=== PATIENT | female | born 1935 | race Caucasian/White ===

== ENCOUNTER 2016-10-29 13:03 | Observation (INO) ==
--- NOTE | 2016-10-29 14:25 | Emergency Department Note ---
Disposition Clinical Impression: Pneumonia Disposition: Admitted As Inpatient Condition: Fair Referrals: Reinaldo Andres MD [Primary Care Provider] - Forms: ED Satisfaction Letter Time of Disposition: 17:27 URI/Sore Throat HPI - General Chief Complaint: ED Upper Respiratory Infection Stated Complaint: cough Time Seen by Provider: 10/29/16 13:15 Source: patient, family Mode of arrival: ambulatory Limitations: no limitations Nursing Notes Reviewed: Yes Vital Signs Reviewed: Yes - History of Present Illness HPI Narrative: 81-year-old female increasing short of breath cough and congestion coughing up pink whitish clear phlegm patient states is getting worse patient is having dyspnea with activity dyspneic exertion she denies any blurred vision double vision she denies any actual known fevers states that she is getting short of breath having further worsening of symptoms with activity Pt Subjective Complaint: cough, nasal congestion Onset (ago): day(s) Duration: gradually worsening Severity: mild Severity scale (1-10): 3 Improves with: nothing Worsens with: exertion If sputum, description: watery, other (pink tinged) Associated symptoms: Reports: diaphoresis, nasal congestion, cough, shortness of breath. Denies: fever, chills, voice changes, myalgias, headache, rhinorrhea , sore throat, stiff neck, chest pain, abdominal pain, nausea, vomiting, diarrhea, dysuria, rash, epistaxis, ear pain Treatments prior to arrival: none - Related Data Home Medications Medication Instructions Recorded Confirmed ALPRAZolam [Xanax 0.5 MG Tablet] 0.5 mg PO TID 08/12/15 10/29/16 Alendronate Sodium [Fosamax] 70 mg PO QWEEK 08/12/15 08/12/15 Aspirin [Adult Low Dose Aspirin EC] 81 mg PO DAILY 08/12/15 10/29/16 Carisoprodol [Soma] 350 mg PO BID 08/12/15 10/29/16 Ergocalciferol (VITAMIN D2) 50,000 unit PO QWEEK 08/12/15 10/29/16 [Drisdol (50,000 Unit)] Levothyroxine [Synthroid] 75 mcg PO DAILY 08/12/15 10/29/16 Metformin HCl [Riomet] 500 mg PO BID 08/12/15 10/29/16 Metoprolol [Lopressor] 50 mg DAILY 08/12/15 10/29/16 Morphine Sulfate ER (24 HR) 90 mg PO 08/12/15 [Morphine Sulfate ER] PredniSONE [Latoya] 10 mg PO DAILY 08/12/15 10/29/16 Simvastatin [Zocor] 40 mg PO HS 08/12/15 10/29/16 TraZODone 75 mg PO DAILY 08/12/15 10/29/16 Previous Rx's Medication Instructions Recorded GuaiFENesin ER [Mucinex] 1,200 mg PO BID #28 tbbp.12hr 08/12/15 Allergies Allergy/AdvReac Type Severity Reaction Status Date / Time ibuprofen [From Advil] Allergy Swelling Verified 10/29/16 13:06 of Lip/Tongue/Throat amitriptyline [From Elavil] AdvReac Hallucinati Verified 10/29/16 13:06 ng fluoxetine [From Prozac] AdvReac Difficulty Verified 12/09/15 12:16 Breathing All systems ED: reviewed and negative except as stated. Constitutional: Denies: fever, chills Eyes: Denies: eye pain ENT ED: Denies: ear pain Cardiovascular: Denies: chest pain, palpitations Respiratory: Reports: cough, sputum production Gastrointestinal: Denies: abdominal pain, melena Genitourinary: Denies: urgency, dysuria Musculoskeletal: Denies: back pain Integumentary: Denies: rash, abrasion Neurological: Denies: headache Psychiatric: Denies: anxiety Endocrine: Denies: fatigue Hematological/Lymphatic: Denies: easy bleeding Allergic/Immunologic: Denies: facial swelling URI PMH - Past Medical History Medical history: Reports: arthritis, asthma, diabetes, fibromyalgia, GERD, hyperlipidemia, hypertension, thyroid disease Surgical history: Reports: orthopedic, other (Cervical fusion, Chawla shahrzad and removal) Surgical history: Reports: (2), KATHY/BSO Psychiatric history: Reports: anxiety, depression - Social History Smoking Status: Never smoker Alcohol use: Reports: none Drug use: Reports: none Physical Exam - General Limitations: no limitations General appearance: alert, in no apparent distress - Head Head exam: atraumatic, normocephalic, normal inspection - Eye Eye exam: Present: normal appearance, PERRL, EOMI - ENT ENT exam: normal exam, normal oropharynx, mucous membranes moist, normal external ear exam - Neck Neck exam: Present: normal inspection, full ROM, trachea midline - Chest Chest inspection: Present: normal inspection, symmetric chest wall rise - Respiratory Respiratory exam: Present: normal lung sounds bilaterally, other (rhonci) - Cardiovascular Cardiovascular exam: Present: regular rate, normal rhythm, normal heart sounds - Abdominal Exam Abdominal exam: Present: soft, Non-Tender, normal bowel sounds. Absent: mass, hernia - Extremities Exam Extremities exam: Present: normal inspection, full ROM, normal capillary refill. Absent: tenderness, joint swelling - Expanded Lower Extremity Exam Lower leg exam: Present: Homans' sign Neurovascular/Tendon exam: Present: normal capillary refill, normal fine/light touch - Back Exam Back exam: Present: normal inspection, full ROM. Absent: tenderness, CVA tenderness (R), muscle spasm - Neurological Exam Neurological exam: Present: alert, oriented X3, CN II-XII intact, normal gait - Psychiatric Psychiatric exam: Present: normal affect, normal mood - Skin Skin exam: Present: warm, dry, intact, normal color Course Course Narrative: Patient was seen and examined the patient resting comfortable he had no pain or discomfort then was noted to have an elevated d-dimer we did a PE study on her upon completion showing no evidence of pulmonary emboli but showing pneumonia we placed on antibodies patient was admitted services Dr. Becerril transfer stable Vital Signs Temperature 98 F 10/29/16 13:12 Pulse Rate 78 10/29/16 13:12 Respiratory Rate 18 10/29/16 13:12 Blood Pressure 151/77 10/29/16 13:12 O2 Sat by Pulse Oximetry 94 10/29/16 13:12 Temperature 98 F 10/29/16 14:03 Pulse Rate 61 10/29/16 17:17 Respiratory Rate 16 10/29/16 17:17 Blood Pressure 145/98 10/29/16 17:17 O2 Sat by Pulse Oximetry 92 10/29/16 17:17 Oxygen Delivery Oxygen Delivery Room Air Upper Respiratory Infection - MDM Narrative Medical decision making narrative: By her description it could be consistent with pulmonary emboli congestive heart failure - Differential Diagnosis Differential Diagnosis: Likely: upper respiratory infection, bronchitis, pneumonia - Medical Records Medical records reviewed: Yes I reviewed the patient's medical records. - Lab Data Lab results reviewed: Yes I reviewed the patient's lab results. Result diagrams: 10/29/16 15:02 10/29/16 15:02 Lab Results 10/29/16 10/29/16 10/29/16 Range/Units 15:02 15:02 15:02 WBC 6.1 (4.3-11.1) K/mcL RBC 4.78 (3.82-4.97) M/mcL Hgb 13.6 (11.5-15.4) g/dL Hct 42.6 (35.3-44.9) % MCV 89.1 (83.0-100.0) fL MCH 28.5 (28.0-33.3) pg MCHC 31.9 (31.6-35.5) g/dL RDW 16.1 H (11.5-14.5) % Plt Count 170 (140-400) K/mcL MPV 9.8 (9.4-12.4) fL Immature Gran % 0.5 (0-4) % Seg Neutrophils % 57.2 % Lymphocytes % 28.4 % Monocytes % 6.7 % Eosinophils % 6.7 % Basophils % 0.5 % Neutrophils # 3.5 (1.6-8.9) K/mcL Lymphocytes # 1.7 (0.6-4.6) K/mcL Monocytes # 0.4 (0.0-1.3) K/mcL Eosinophils # 0.4 (0.0-0.6) K/mcL Basophils # 0.0 (0.0-0.2) K/mcL PT 11.7 (9.4-12.1) Seconds INR 1.1 APTT 30.8 (26.0-36.0) Seconds D-Dimer 1074 H (0-500) ng/mLFEU Sodium (136-145) mEq/L Potassium (3.5-4.5) mEq/L Chloride (98-109) mEq/L Carbon Dioxide (19-29) mEq/L BUN (7-20) mg/dL Creatinine (0.57-1.11) mg/dL Est GFR ( Amer) (> 60) Est GFR (Non-Af Amer) (> 60) BUN/Creatinine Ratio (6-26) Glucose (70-99) mg/dL Calculated Osmolality (280-300) Calcium (8.6-10.8) mg/dL Troponin I (0-0.03) ng/mL B-Natriuretic Peptide (0-100) pg/mL TSH (0.350-4.840) mcIU/mL Urine Color (Yellow) Urine Clarity (Clear) Urine pH (5.0-8.0) pH Units Ur Specific [place] (1.010-1.025) Urine Protein (Neg-Trace) mg/dL Urine Glucose (UA) (Normal) mg/dL Urine Ketones (Negative) mg/dL Urine Blood (Negative) Urine Nitrite (Negative) Urine Bilirubin (Negative) Urine Urobilinogen (Normal) mg/dL Ur Leukocyte Esterase (Negative) Urine Microscopic RBC (0-3) per hpf Urine Microscopic WBC (0-3) per hpf Ur Squamous Epith Cells (None-Few) per lpf Urine Bacteria (None-Few) per hpf Ur Culture Indicated? (NO) 10/29/16 10/29/16 10/29/16 Range/Units 15:02 15:02 15:02 WBC (4.3-11.1) K/mcL RBC (3.82-4.97) M/mcL Hgb (11.5-15.4) g/dL Hct (35.3-44.9) % MCV (83.0-100.0) fL MCH (28.0-33.3) pg MCHC (31.6-35.5) g/dL RDW (11.5-14.5) % Plt Count (140-400) K/mcL MPV (9.4-12.4) fL Immature Gran % (0-4) % Seg Neutrophils % % Lymphocytes % % Monocytes % % Eosinophils % % Basophils % % Neutrophils # (1.6-8.9) K/mcL Lymphocytes # (0.6-4.6) K/mcL Monocytes # (0.0-1.3) K/mcL Eosinophils # (0.0-0.6) K/mcL Basophils # (0.0-0.2) K/mcL PT (9.4-12.1) Seconds INR APTT (26.0-36.0) Seconds D-Dimer (0-500) ng/mLFEU Sodium 141 (136-145) mEq/L Potassium 4.2 (3.5-4.5) mEq/L Chloride 105 (98-109) mEq/L Carbon Dioxide 26 (19-29) mEq/L BUN 17 (7-20) mg/dL Creatinine 0.76 (0.57-1.11) mg/dL Est GFR ( Amer) > 60 (> 60) Est GFR (Non-Af Amer) > 60 (> 60) BUN/Creatinine Ratio 22 (6-26) Glucose 94 (70-99) mg/dL Calculated Osmolality 293 (280-300) Calcium 9.2 (8.6-10.8) mg/dL Troponin I 0.00 (0-0.03) ng/mL B-Natriuretic Peptide 78 (0-100) pg/mL TSH 3.952 (0.350-4.840) mcIU/mL Urine Color (Yellow) Urine Clarity (Clear) Urine pH (5.0-8.0) pH Units Ur Specific [place] (1.010-1.025) Urine Protein (Neg-Trace) mg/dL Urine Glucose (UA) (Normal) mg/dL Urine Ketones (Negative) mg/dL Urine Blood (Negative) Urine Nitrite (Negative) Urine Bilirubin (Negative) Urine Urobilinogen (Normal) mg/dL Ur Leukocyte Esterase (Negative) Urine Microscopic RBC (0-3) per hpf Urine Microscopic WBC (0-3) per hpf Ur Squamous Epith Cells (None-Few) per lpf Urine Bacteria (None-Few) per hpf Ur Culture Indicated? (NO) 10/29/16 Range/Units 15:15 WBC (4.3-11.1) K/mcL RBC (3.82-4.97) M/mcL Hgb (11.5-15.4) g/dL Hct (35.3-44.9) % MCV (83.0-100.0) fL MCH (28.0-33.3) pg MCHC (31.6-35.5) g/dL RDW (11.5-14.5) % Plt Count (140-400) K/mcL MPV (9.4-12.4) fL Immature Gran % (0-4) % Seg Neutrophils % % Lymphocytes % % Monocytes % % Eosinophils % % Basophils % % Neutrophils # (1.6-8.9) K/mcL Lymphocytes # (0.6-4.6) K/mcL Monocytes # (0.0-1.3) K/mcL Eosinophils # (0.0-0.6) K/mcL Basophils # (0.0-0.2) K/mcL PT (9.4-12.1) Seconds INR APTT (26.0-36.0) Seconds D-Dimer (0-500) ng/mLFEU Sodium (136-145) mEq/L Potassium (3.5-4.5) mEq/L Chloride (98-109) mEq/L Carbon Dioxide (19-29) mEq/L BUN (7-20) mg/dL Creatinine (0.57-1.11) mg/dL Est GFR ( Amer) (> 60) Est GFR (Non-Af Amer) (> 60) BUN/Creatinine Ratio (6-26) Glucose (70-99) mg/dL Calculated Osmolality (280-300) Calcium (8.6-10.8) mg/dL Troponin I (0-0.03) ng/mL B-Natriuretic Peptide (0-100) pg/mL TSH (0.350-4.840) mcIU/mL Urine Color Yellow (Yellow) Urine Clarity Clear (Clear) Urine pH 5.0 (5.0-8.0) pH Units Ur Specific [place] 1.015 (1.010-1.025) Urine Protein Negative (Neg-Trace) mg/dL Urine Glucose (UA) Normal (Normal) mg/dL Urine Ketones Negative (Negative) mg/dL Urine Blood Negative (Negative) Urine Nitrite Negative (Negative) Urine Bilirubin Negative (Negative) Urine Urobilinogen Normal (Normal) mg/dL Ur Leukocyte Esterase Small H (Negative) Urine Microscopic RBC 0-3 (0-3) per hpf Urine Microscopic WBC 3-5 H (0-3) per hpf Ur Squamous Epith Cells Few (None-Few) per lpf Urine Bacteria Few (None-Few) per hpf Ur Culture Indicated? YES A (NO) - Radiology Data Radiology results reviewed: Yes I reviewed the patient's radiology results. ITS Impressions Chest X-Ray 10/29/16 14:22 IMPRESSION: No significant findings in the chest. D/ / Bonifacio Burciaga MD / Bonifacio Burciaga MD Interpreting Provider: Bonifacio Burciaga MD Chest CTA 10/29/16 16:00 IMPRESSION: 1. No evidence of pulmonary embolism or aortic dissection. 2. Bronchial wall thickening and mucous plugging within the lower lobes bilaterally, greater on the right, with mild patchy ground-glass opacity within the lower lungs bilaterally. Findings are suggestive of bronchopneumonia. However, this must be followed up to ensure that there is no endobronchial lesions. 3. Moderate size hiatal hernia. D/ / Reinaldo Talavera MD / Reinaldo Talavera MD Interpreting Provider: Reinaldo Talavera MD - EKG Data EKG attestation: Yes I reviewed and interpreted this EKG. EKG results narrative: Sinus rhythm PVC rate is 66 HI 166 QRS 84 QT 399 back S -22 Critical Care Time Critical Care Time: No
[2016-10-29 15:11] LABS: Basophils % 0.5 %; Eosinophils # 0.4 K/mcL (0.0-0.6); Eosinophils % 6.7 %; Hematocrit 42.6 % (35.3-44.9); Hemoglobin 13.6 g/dL (11.5-15.4); Immature Granulocytes % 0.5 % (0-4); Lymphocytes # 1.7 K/mcL (0.6-4.6); Lymphocytes % 28.4 %; Mean Corpuscular HGB Conc 31.9 g/dL (31.6-35.5); Mean Corpuscular Hemoglobin 28.5 pg (28.0-33.3); Mean Corpuscular Volume 89.1 fL (83.0-100.0); Mean Platelet Volume 9.8 fL (9.4-12.4); Monocytes # 0.4 K/mcL (0.0-1.3); Monocytes % 6.7 %; Neutrophils # 3.5 K/mcL (1.6-8.9); Platelet Count 170 K/mcL (140-400); Red Blood Count 4.78 M/mcL (3.82-4.97); Red Cell Distribution Width 16.1 % (11.5-14.5); Segmented Neutrophils % 57.2 %
[2016-10-29 15:17] LABS: INR 1.1; Prothrombin Time 11.7 Seconds (9.4-12.1)
[2016-10-29 15:27] LABS: BUN/Creatinine Ratio 22 (6-26); Blood Urea Nitrogen 17 mg/dL (7-20); Calcium 9.2 mg/dL (8.6-10.8); Carbon Dioxide 26 mEq/L (19-29); Chloride 105 mEq/L (98-109); Glucose 94 mg/dL (70-99); Osmolality,Calculated 293 (280-300); Potassium 4.2 mEq/L (3.5-4.5); Sodium 141 mEq/L (136-145); eGFR For African Americans > 60 (> 60); eGFR For Non-African Americans > 60 (> 60)
[2016-10-29 15:28] LABS: Bilirubin,Urine Negative (Negative); Blood,Urine Negative (Negative); Clarity,Urine Clear (Clear); Color,Urine Yellow (Yellow); Glucose,Urine (UA) Normal (Normal); Ketones,Urine Negative (Negative); Leukocyte Esterase,Urine Small (Negative); Nitrite,Urine Negative (Negative); Protein,Urine Negative (Neg-Trace); Specific Gravity,Urine 1.015 (1.010-1.025); Urobilinogen,Urine Normal (Normal)
[2016-10-29 15:39] LABS: Bacteria,Urine Few per hpf (None-Few); RBC,Urine 0-3 per hpf (0-3); Squamous Epithelial Cell,Urine Few per lpf (None-Few)
[2016-10-29 15:49] LABS: Thyroid Stimulating Hormone 3.952 mcIU/mL (0.350-4.840)
[2016-10-29] MEDS ORDERED: Azithromycin 500 MG in D5% in Water 250 ML IVPB ONE ×2 (17:16→19:25)
[2016-10-29] MEDS ORDERED: Dextrose Gel 15 GM PO PRN ×4 (17:23→19:25)
[2016-10-29] MEDS ORDERED: D5% in Water 1,000 ML IVC PRN ×2 (17:23→19:25)
[2016-10-29] MEDS ORDERED: *HR* Dextrose 50 % in Water (Syg) 50 ML SYRINGE IVP PRN ×2 (17:23→19:25)
[2016-10-29] MEDS ORDERED: Naloxone 0.4 MG/ML INJ IVP PRN (19:25)
[2016-10-29] MEDS ORDERED: (Alendronate Sodium [Fosamax] 70 MG) PO SCH (19:25)
[2016-10-29] MEDS ORDERED: traZODone 50 MG TABLET PO SCH (21:00)
[2016-10-29] MEDS: 0.9 % Sodium Chloride 1,000 ML IVC SCH (22:48)
[2016-10-29] MEDS: ALPRAZolam 0.5 MG TABLET PO SCH (22:49)
[2016-10-29] MEDS: Carisoprodol 350 MG TABLET PO SCH (22:50)
[2016-10-29] MEDS: *HR* Metformin 500 MG TABLET PO SCH (22:52)
[2016-10-30 05:28] LABS: Basophils % 0.5 %; Eosinophils # 0.4 K/mcL (0.0-0.6); Eosinophils % 7.5 %; Hemoglobin 12.7 g/dL (11.5-15.4); Immature Granulocytes % 0.3 % (0-4); Lymphocytes # 1.5 K/mcL (0.6-4.6); Lymphocytes % 26.8 %; Mean Corpuscular HGB Conc 31.8 g/dL (31.6-35.5); Mean Corpuscular Volume 88.3 fL (83.0-100.0); Mean Platelet Volume 9.5 fL (9.4-12.4); Monocytes # 0.4 K/mcL (0.0-1.3); Monocytes % 6.8 %; Neutrophils # 3.3 K/mcL (1.6-8.9); Platelet Count 152 K/mcL (140-400); Red Blood Count 4.53 M/mcL (3.82-4.97); Red Cell Distribution Width 15.9 % (11.5-14.5); Segmented Neutrophils % 58.1 %
[2016-10-30 05:35] LABS: INR 1.1; Prothrombin Time 12.2 Seconds (9.4-12.1)
[2016-10-30 06:32] LABS: BUN/Creatinine Ratio 18 (6-26); Blood Urea Nitrogen 13 mg/dL (7-20); Calcium 8.7 mg/dL (8.6-10.8); Carbon Dioxide 26 mEq/L (19-29); Chloride 105 mEq/L (98-109); Glucose 94 mg/dL (70-99); Osmolality,Calculated 288 (280-300); Potassium 4.1 mEq/L (3.5-4.5); Sodium 139 mEq/L (136-145); eGFR For African Americans > 60 (> 60); eGFR For Non-African Americans > 60 (> 60)
[2016-10-30] MEDS ORDERED: Insulin LISPRO 300 UNITS/3 ML VIAL SQ SCH (07:30)
[2016-10-30] MEDS: Insulin LISPRO 300 UNITS/3 ML VIAL SQ SCH ×2 (08:48→11:45)
[2016-10-30] MEDS: *HR* Metformin 500 MG TABLET PO SCH (08:49)
[2016-10-30] MEDS: ALPRAZolam 0.5 MG TABLET PO SCH (08:50)
[2016-10-30] MEDS: Carisoprodol 350 MG TABLET PO SCH (08:50)
[2016-10-30] MEDS: 0.9 % Sodium Chloride 1,000 ML IVC SCH ×2 (08:51→13:56)
[2016-10-30] MEDS ORDERED: Aspirin Enteric Coated 81 MG Tablet PO SCH (09:00)
[2016-10-30] MEDS ORDERED: Cholecalciferol (D-3) 1,000 UNIT TABLET PO SCH (09:00)
[2016-10-30] MEDS ORDERED: predniSONE 10 MG TABLET PO SCH (09:00)
[2016-10-30 11:10] VITALS: BP 142/87
--- NOTE | 2016-10-30 11:31 | Electrocardiograph Report ---
[place] [id number] Test Date: 2016-10-29 Pat Name: Alix Diana Department: [id number] Room: [facility] Gender: F Menu Planner: [id number] : [id number] Requested By: Milena Stanley Order Number: [id number] Reading MD: Rafaela Villegas Measurements Intervals [place] Rate: 66 P: 81 [place]: 166 QRS: -22 QRSD: 84 T: 12 QT: 399 QTc: 412 Interpretive Statements SINUS RHYTHM WITH OCCASIONAL VENTRICULAR PREMATURE COMPLEXES BORDERLINE LEFT AXIS DEVIATION Electronically Signed On 10-30-2016 11:30:03 EDT by Rafaela Villegas
--- NOTE | 2016-10-30 14:35 | Internal Med History&Physical ---
Date of Encounter: 10/30/16 Time of Encounter: 14:00 Assessment and Plan (1) Dyspnea Current visit: Yes Status: Acute Suspect resolving pneumonia. CT of chest reviewed which showed bibasilar infiltrates. WBC and differential are normal. She was given Rocephin and Zithromax in the emergency room. Qualifiers: Dyspnea type: dyspnea on exertion Qualified Code(s): R06.09 - Other forms of dyspnea (2) Pneumonia Current visit: Yes Status: Acute As above Qualifiers: Pneumonia type: due to unspecified organism Laterality: bilateral Lung location: lower lobe of lung Qualified Code(s): J18.9 - Pneumonia, unspecified organism Internal Medicine - H&P: HPI Chief complaint: Cough and dyspnea Admitted From: Home Plans for Post Hospital Care: Home History of present illness: Ms. Diana is a 81 year old female who came to emergency room stating she had 3- 4 week history of cough with dyspnea. She states the cough was productive of whitish phlegm with occasional shades of pink. She denies carlos alberto hemoptysis or green or yellow mucus. When she did not feel she was improving she decided to come to emergency room. She was evaluated and felt to have possible pneumonia. She was admitted to [facility] floor for ongoing care needs. She states her dyspnea has significantly improved since admission. She reports she has had pneumonia previously several occasions. Her respiratory history issignificant for being a lifelong nonsmoker but she has a diagnosis of asthma. She uses Ventolin MDI on a when necessary basis at home. She does not use home oxygen. Past Med Surg Social Fam HX - Past Medical History Medical history: arthritis, asthma, diabetes, fibromyalgia, GERD, hyperlipidemia , hypertension, thyroid disease Psychiatric history: anxiety, depression - Past Surgical History Surgical History: , KATHY/BSO - Social History Smoking Status: Never smoker Smokeless Tobacco Status: No Alcohol use: none Drug use: none - Family History Mother Living Status: Age at : 93 Hx Family Cancer: Yes (colon) Father Age: 69 Living Status: Age at : 69 Hx Family Cardiac Disorders: Yes Internal Medicine - H&P: Meds ALPRAZolam [Xanax 0.5 MG Tablet] 0.5 mg PO TID 08/12/15 [History] Alendronate Sodium [Fosamax] 70 mg PO QWEEK 08/12/15 [History] Aspirin [Adult Low Dose Aspirin EC] 81 mg PO DAILY 08/12/15 [History] Carisoprodol [Soma] 350 mg PO BID 08/12/15 [History] Ergocalciferol (VITAMIN D2) [Drisdol (50,000 Unit)] 50,000 unit PO QWEEK [History] GuaiFENesin ER [Mucinex] 1,200 mg PO BID #28 tbbp.12hr 08/12/15 [Rx] Levothyroxine [Synthroid] 75 mcg PO DAILY 08/12/15 [History] Metformin HCl [Riomet] 500 mg PO BID 08/12/15 [History] Metoprolol [Lopressor] 50 mg DAILY 08/12/15 [History] Morphine Sulfate ER (24 HR) [Morphine Sulfate ER] 90 mg PO 08/12/15 [History] PredniSONE [Latoya] 10 mg PO DAILY 08/12/15 [History] Simvastatin [Zocor] 40 mg PO HS 08/12/15 [History] TraZODone 75 mg PO DAILY 08/12/15 [History] Allergies ibuprofen [From Advil] Allergy (Verified 10/29/16 13:06) Swelling of Lip/Tongue/Throat pt states she is not allergic to ibuprofen amitriptyline [From Elavil] Adverse Reaction (Verified 10/29/16 13:06) Hallucinating fluoxetine [From Prozac] Adverse Reaction (Verified 12/09/15 12:16) Difficulty Breathing Was not affective All Systems PM: A 10-system review of systems was performed and is negative for pertinent findings except as documented above in the HPI. Review of systems: Gen.: She states her weight has been stable past few months Cardiovascular: She has history of hypertension but denies OH heart failure angina DVT or pulmonary embolus Respiratory: As per history of present illness GI: She denies disorders of her liver gallbladder or exocrine pancreas : She denies hematuria dysuria or kidney stones Neurologic: She denies large distribution strokes or seizures Endocrine: She was diagnosed with DM2 5-10 years ago. She has hypothyroidism and hyperlipidemia Hematology/oncology: She has history of anemia which has resolved. She denies internal malignancies Psychiatric: She has anxiety and depression but denies other mental health diagnoses [place] skeletal: She has DJD, osteoporosis, and polymyalgia rheumatica. - Constitutional Vitals: Temp Pulse Resp BP Pulse Ox 98.7 F 80 16 142/87 98 10/30/16 11:08 10/30/16 11:08 10/30/16 11:08 10/30/16 11:08 10/30/16 11:08 Exam: Gen.: She is a well-developed well-nourished female who appears in no acute distress HEENT: Head is atraumatic and normocephalic. Eyes: EOMI. There is no scleral icterus. Mouth: Mucosa is moist. Neck: Supple and nontender. There is no thyromegaly or adenopathy noted. Heart: Regular without murmurs gallops or ectopics. Lungs: No wheezes or crackles are heard. Abdomen: Soft and nontender. No masses or guarding noted. Extremities: There is no cyanosis edema or clubbing noted. Dorsalis pedis and posterior tibial pulses are trace palpable bilaterally. She has mild DJD changes of her hands. Neurologic: Mental status: She is talkative and a good historian. Cranial nerves: Smile is symmetric. Forehead wrinkles bilaterally. Tongue protrudes midline. EOMI. Motor: There is no pronator drift. Cerebellar: Finger to nose is intact bilaterally. Skin: Warm and dry Internal Med - H&P Results - Labs CBC & Chem 7: 10/30/16 05:09 10/30/16 05:09 Labs: Short CBC 10/30/16 Range/Units 05:09 WBC 5.7 (4.3-11.1) K/mcL Hgb 12.7 (11.5-15.4) g/dL Hct 40.0 (35.3-44.9) % Plt Count 152 (140-400) K/mcL Neutrophils # 3.3 (1.6-8.9) K/mcL BMP 10/30/16 05:09 Sodium 139 Potassium 4.1 Chloride 105 Carbon Dioxide 26 BUN 13 Creatinine 0.71 Glucose 94 Calcium 8.7
--- NOTE | 2016-10-30 14:45 | Discharge Summary ---
Date of Encounter: 10/30/16 Time of Encounter: 14:00 - Discharge Diagnosis (1) Pneumonia Priority: Primary Status: Acute Qualifiers: Pneumonia type: due to unspecified organism Laterality: bilateral Lung location: lower lobe of lung Qualified Code(s): J18.9 - Pneumonia, unspecified organism (2) Dyspnea Priority: Secondary Status: Acute Qualifiers: Dyspnea type: dyspnea on exertion Qualified Code(s): R06.09 - Other forms of dyspnea - Discharge Medications Prescriptions: Cefuroxime PO [Ceftin] 500 mg PO Q12HR #6 tablet Azithromycin [Zithromax] 250 mg PO Q24H #3 tablet Lactobacillus [Culturelle] 1 each PO BID #6 cap.sprink Home Medications: ALPRAZolam [Xanax 0.5 MG Tablet] 0.5 mg PO TID 08/12/15 [History] Alendronate Sodium [Fosamax] 70 mg PO QWEEK 08/12/15 [History] Aspirin [Adult Low Dose Aspirin EC] 81 mg PO DAILY 08/12/15 [History] Carisoprodol [Soma] 350 mg PO BID 08/12/15 [History] Ergocalciferol (VITAMIN D2) [Drisdol (50,000 Unit)] 50,000 unit PO QWEEK [History] GuaiFENesin ER [Mucinex] 1,200 mg PO BID #28 tbbp.12hr 08/12/15 [Rx] Levothyroxine [Synthroid] 75 mcg PO DAILY 08/12/15 [History] Metformin HCl [Riomet] 500 mg PO BID 08/12/15 [History] Metoprolol [Lopressor] 50 mg DAILY 08/12/15 [History] Morphine Sulfate ER (24 HR) [Morphine Sulfate ER Caps] 90 mg PO 08/12/15 [ History] PredniSONE [Latoya] 10 mg PO DAILY 08/12/15 [History] Simvastatin [Zocor] 40 mg PO HS 08/12/15 [History] TraZODone 75 mg PO DAILY 08/12/15 [History] Azithromycin [Zithromax] 250 mg PO Q24H #3 tablet 10/30/16 [Rx] Cefuroxime PO [Ceftin] 500 mg PO Q12HR #6 tablet 10/30/16 [Rx] Lactobacillus [Culturelle] 1 each PO BID #6 cap.sprink 10/30/16 [Rx] Allergies/Adverse Reactions: Allergies ibuprofen [From Advil] Allergy (Verified 10/29/16 13:06) Swelling of Lip/Tongue/Throat pt states she is not allergic to ibuprofen amitriptyline [From Elavil] Adverse Reaction (Verified 10/29/16 13:06) Hallucinating fluoxetine [From Prozac] Adverse Reaction (Verified 12/09/15 12:16) Difficulty Breathing Was not affective Date of admission: 10/29/16 17:32 Primary care physician: Reinaldo Andres MD Consults: 10/29/16 23:24 Consult to Underwriting Support Specialist [CONS] Routine Reason for SW Consult: Financial concerns on how to pay hospital bill. - Patient Status Disposition: Home, Self-Care Condition: Fair Functional capacity at discharge: uses cane/walker Overall status at discharge: patient is progressing back to baseline - Discharge Instructions Follow Up With: Reinaldo Andres MD [Primary Care Provider] - 1 week - Diet and Activity Activity: resume usual activities as tolerated Diet: advance to your usual diet Hospital course: Ms. Diana is a 81 year old female who came to emergency room stating she had 3- 4 week history of cough with dyspnea. She states the cough was productive of whitish phlegm with occasional shades of pink. She denies carlos alberto hemoptysis or green or yellow mucus. When she did not feel she was improving she decided to come to emergency room. She was evaluated and felt to have possible pneumonia. She was admitted to [facility] floor for ongoing care needs. Initial orders were written by the emergency room physician. I saw her on October 30 and performed a history physical and discharge. When I saw her I felt she likely had subacute pneumonia with ongoing dyspnea. She remained afebrile during her hospital stay. Follow-up CBC on October 30 showed normal WBC and differential. She will continue with oral antibiotics and probiotics for 3 additional days after discharge. She will follow with her PCP within one week. Room air oximetry will be checked on a 6 minute walk prior to discharge. - Time Spent with Patient Total time spent providing and/or coordinating discharge services: - Constitutional Vitals: Temp Pulse Resp BP Pulse Ox 98.7 F 80 16 142/87 98 10/30/16 11:08 10/30/16 11:08 10/30/16 11:08 10/30/16 11:08 10/30/16 11:08
[2016-10-30] MEDS ORDERED: Azithromycin 500 MG in D5% in Water 250 ML IVPB SCH (20:00)
== END 2016-10-30 16:00 | disposition home or self-care (01) ==
LOC: INPPIK 13:03 → EMEROOPIK 13:03 → INPPIK 20:04
PROVIDERS: ADMIT Internal Medicine; ATTEND Internal Medicine

== ENCOUNTER 2017-04-18 14:30 | Observation (INO) ==
--- NOTE | 2017-04-18 15:06 | Emergency Department Note ---
Disposition Clinical Impression: Community acquired pneumonia, Dyspnea Disposition: Admitted As Inpatient Condition: Fair Referrals: Reinaldo Andres MD [Primary Care Provider] - Time of Disposition: 15:22 SOB HPI - General Chief Complaint: ED Shortness of Breath/Dyspnea Stated Complaint: PRODUCTIVE COUGH Time Seen by Provider: 04/18/17 14:35 Source: patient Mode of arrival: ambulatory Limitations: no limitations Nursing Notes Reviewed: Yes Vital Signs Reviewed: Yes - History of Present Illness 3 day history of fever chills cough congestion sputum production bright green in color aches all over denies any blurred vision double vision is dyspneic with activity denies diarrhea melena hematochezia or hematemesis any abdominal pain or discomfort and cramping or diarrhea patient denies knowledge of flu exposure Pt Subjective Complaint: shortness of breath, cough Onset (ago): day(s) (3) Severity: moderate Consistency/Duration: intermittent, gradually worsening Improves with: nothing Worsens with: exertion, movement, coughing Known history of: COPD Associated symptoms: Reports: pain with inspiration, fever, cough, wheezing, sputum production. Denies: orthopnea, lower extremity pain, polyuria, polydipsia, parasthesias, palpitations, diaphoresis, nausea/vomiting, syncope, abdominal pain, rash, sense of impending doom Treatment prior to arrival: none Cough present: Yes Cough Description: Involuntary, Productive, Weak, Rattling Cough Frequency: Intermittent Sputum production: Yes Sputum Amount: Moderate Sputum Color: Green - Related Data Home Medications Medication Instructions Recorded Confirmed ALPRAZolam [Xanax 0.5 MG Tablet] 0.5 mg PO TID 08/12/15 04/18/17 Alendronate Sodium [Fosamax] 70 mg PO QWEEK 08/12/15 04/18/17 Aspirin [Adult Low Dose Aspirin EC] 81 mg PO DAILY 08/12/15 04/18/17 Carisoprodol [Soma] 350 mg PO BID 08/12/15 04/18/17 Ergocalciferol (VITAMIN D2) 50,000 unit PO QWEEK 08/12/15 04/18/17 [Drisdol (50,000 Unit)] Levothyroxine [Synthroid] 75 mcg PO DAILY 08/12/15 04/18/17 Metformin HCl [Riomet] 500 mg PO BID 08/12/15 04/18/17 Metoprolol [Lopressor] 50 mg DAILY 08/12/15 04/18/17 Morphine Sulfate ER (24 HR) 90 mg PO BID 08/12/15 04/18/17 [Morphine Sulfate ER Caps] PredniSONE [Latoya] 10 mg PO DAILY 08/12/15 04/18/17 Simvastatin [Zocor] 40 mg PO HS 08/12/15 04/18/17 TraZODone 100 mg PO DAILY 08/12/15 04/18/17 Albuterol Sulfate [Albuterol 2 puff IH Q4H PRN 04/18/17 04/18/17 Inhaler] Budesonide/Formoterol 160/4.5 1 puff IH BIDR 04/18/17 04/18/17 [Symbicort 160/4.5] Ferrous Gluconate 324 mg PO DAILY 04/18/17 04/18/17 Folic Acid 1 mg PO DAILY 04/18/17 04/18/17 Ipratropium/Albuterol Neb [Duoneb] 3 ml IH Q6HR 04/18/17 04/18/17 Losartan Potassium [Cozaar] 100 mg PO DAILY 04/18/17 04/18/17 Morphine Sulfate [Morphine Sulfate 100 mg PO BID 04/18/17 04/18/17 ER] Omeprazole 40 mg PO DAILY 04/18/17 04/18/17 Previous Rx's Medication Instructions Recorded Lactobacillus [Culturelle] 1 each PO BID #6 cap.sprink 10/30/16 Allergies Allergy/AdvReac Type Severity Reaction Status Date / Time ibuprofen [From Advil] Allergy Swelling Verified 10/29/16 13:06 of Lip/Tongue/Throat amitriptyline [From Elavil] AdvReac Hallucinati Verified 10/29/16 13:06 ng fluoxetine [From Prozac] AdvReac Difficulty Verified 12/09/15 12:16 Breathing All systems ED: reviewed and negative except as stated. Review of Systems: As Per HPI Constitutional: Reports: fever, chills, weakness Eyes: Denies: eye pain, eye discharge ENT ED: Reports: throat pain, congestion Cardiovascular: Denies: chest pain, palpitations Respiratory: Reports: cough, dyspnea, wheezes, sputum production Gastrointestinal: Denies: abdominal pain, nausea, vomiting Genitourinary: Denies: urgency, dysuria Musculoskeletal: Denies: back pain, neck pain Integumentary: Denies: rash, abrasion Neurological: Denies: headache Psychiatric: Denies: anxiety Endocrine: Denies: fatigue Hematological/Lymphatic: Denies: easy bleeding Allergic/Immunologic: Denies: facial swelling Past Medical History - Past Medical History Attestation: Yes The following information was validated with the patient. Source: patient, old records reviewed, nursing notes reviewed Medical history: Reports: arthritis, asthma, diabetes, fibromyalgia, GERD, hyperlipidemia, hypertension, thyroid disease Surgical history: Reports: , KATHY/BSO Psychiatric history: Reports: anxiety, depression - Social History Smoking Status: Never smoker Smokeless Tobacco Status: No Alcohol use: Reports: none Drug use: Reports: none Physical Exam - General Limitations: no limitations General appearance: alert, in no apparent distress - Head Head exam: atraumatic, normocephalic, normal inspection - Eye Eye exam: Present: normal appearance, PERRL, EOMI - ENT ENT exam: normal exam, normal oropharynx, mucous membranes moist, TM's normal bilaterally, normal external ear exam, other (bijan cheeks and rhonci) - Neck Neck exam: Present: normal inspection, full ROM, trachea midline - Chest Chest inspection: Present: normal inspection, symmetric chest wall rise - Respiratory Respiratory exam: Present: prolonged expiratory phase, other (rhonchi) - Cardiovascular Cardiovascular exam: Present: regular rate, normal rhythm, normal heart sounds - Abdominal Exam Abdominal exam: Present: soft, Non-Tender, normal bowel sounds. Absent: mass, pulsatile mass - Expanded Upper Extremity Exam Shoulder exam: Present: normal inspection, full ROM Arm exam: Present: normal inspection, full ROM Elbow exam: Present: normal inspection, full ROM Forearm/Wrist exam: Present: normal inspection, full ROM Hand exam: Present: normal inspection, full ROM Vascular exam: Normal: capillary refill, radial pulse - Expanded Lower Extremity Exam Hip/Pelvis exam: Present: normal inspection, full ROM Upper leg exam: Present: normal inspection, full ROM Knee exam: Present: normal inspection, full ROM Lower leg exam: Present: normal inspection, full ROM Ankle exam: Present: normal inspection, full ROM Foot/toe exam: Present: normal inspection, full ROM Neurovascular/Tendon exam: Present: normal capillary refill, normal fine/light touch. Absent: motor deficit, sensory deficit, tendon deficit Gait: observed and normal - Back Exam Back exam: Present: normal inspection, full ROM. Absent: muscle spasm - Neurological Exam Neurological exam: Present: alert, oriented X3, CN II-XII intact, normal gait - Psychiatric Psychiatric exam: Present: normal affect, normal mood - Skin Skin exam: Present: warm, dry, intact, normal color Course Course Narrative: Patient was seen and examined patient had flu swab was checks x-ray and labs chest x-ray shows pneumonia as result patient will be admitted for observation and antibiotics started if the fluid was positive we will start her on Tamiflu dr bermudez advised Vital Signs Temperature 98.3 F 04/18/17 14:32 Pulse Rate 106 04/18/17 14:32 Respiratory Rate 18 04/18/17 14:32 Blood Pressure 144/97 04/18/17 14:32 O2 Sat by Pulse Oximetry 95 04/18/17 14:32 Temperature 98.3 F 04/18/17 14:32 Pulse Rate 106 04/18/17 14:32 Respiratory Rate 18 04/18/17 14:32 Blood Pressure 144/97 04/18/17 14:32 O2 Sat by Pulse Oximetry 95 04/18/17 14:32 Oxygen Delivery Oxygen Delivery Room Air Shortness of Breath/Dyspnea - Differential Diagnosis Likely: pneumonia - Medical Records Medical records reviewed: Yes I reviewed the patient's medical records. - Lab Data Lab results reviewed: Yes I reviewed the patient's lab results. - Radiology Data Radiology results reviewed: Yes I reviewed the patient's radiology results. ITS Impressions Chest X-Ray 04/18/17 14:45 IMPRESSION: Right lower lobe airspace disease possibly representing pneumonia D/ / Damon Cedeno MD / Damon Cedeno MD Interpreting Provider: Damon Cedeno MD Critical Care Time Critical Care Time: No
[2017-04-18] MEDS ORDERED: Azithromycin 500 MG in D5% in Water 250 ML IVPB ONE ×2 (15:11→16:55)
[2017-04-18] MEDS ORDERED: 0.9 % Sodium Chloride 1,000 ML IVC SCH (15:15)
[2017-04-18 15:46] LABS: Basophils % 0.2 %; Eosinophils % 0.2 %; Hematocrit 44.8 % (35.3-44.9); Hemoglobin 14.5 g/dL (11.5-15.4); Immature Granulocytes % 1.8 % (0-4); Lymphocytes # 0.7 K/mcL (0.6-4.6); Lymphocytes % 6.5 %; Mean Corpuscular HGB Conc 32.4 g/dL (31.6-35.5); Mean Corpuscular Hemoglobin 30.3 pg (28.0-33.3); Mean Corpuscular Volume 93.5 fL (83.0-100.0); Mean Platelet Volume 9.3 fL (9.4-12.4); Monocytes # 0.4 K/mcL (0.0-1.3); Monocytes % 3.8 %; Platelet Count 142 K/mcL (140-400); Red Blood Count 4.79 M/mcL (3.82-4.97); Red Cell Distribution Width 12.3 % (11.5-14.5); Segmented Neutrophils % 87.5 %
[2017-04-18 15:51] LABS: INR 1.4; Prothrombin Time 15.2 Seconds (9.4-12.1)
[2017-04-18 15:54] LABS: Activated Partial Thrombo Time 32.3 Seconds (26.0-36.0)
[2017-04-18 16:12] LABS: Alanine Aminotransferase 13 Units/L (0-55); Albumin 3.2 g/dL (3.5-5.0); Albumin/Globulin Ratio 0.8 (1.1-2.2); Alkaline Phosphatase 45 Units/L (38-126); Aspartate Amino Transferase 17 Units/L (5-34); BUN/Creatinine Ratio 15 (6-26); Bilirubin,Total 0.6 mg/dL (0.2-1.2); Blood Urea Nitrogen 11 mg/dL (7-20); Calcium 10.1 mg/dL (8.6-10.8); Carbon Dioxide 25 mEq/L (19-29); Chloride 103 mEq/L (98-109); Glucose 134 mg/dL (70-99); Osmolality,Calculated 293 (280-300); Potassium 4.3 mEq/L (3.5-4.5); Sodium 141 mEq/L (136-145); Total Protein 7.2 g/dL (6.0-8.3); eGFR For African Americans > 60 (> 60); eGFR For Non-African Americans > 60 (> 60)
[2017-04-18] MEDS ORDERED: Ondansetron ODT 4 MG TAB.RAPDIS SL PRN (16:55)
[2017-04-18] MEDS ORDERED: Naloxone 0.4 MG/ML INJ IVP PRN (16:55)
[2017-04-18] MEDS ORDERED: NON-FORMULARY MEDICATION 1 EACH EACH (Alendronate Sodium [Fosamax] 70 MG) PO SCH (16:55)
[2017-04-18] MEDS ORDERED: Acetaminophen 325 MG TABLET PO PRN (16:55)
[2017-04-18] MEDS ORDERED: *HR* OxyCODONE Immed Rel 5 MG TABLET PO PRN (17:52)
[2017-04-18] MEDS: *HR* Metformin 500 MG TABLET PO SCH (18:55)
[2017-04-18] MEDS: 0.9 % Sodium Chloride 1,000 ML IVC SCH (18:56)
[2017-04-18] MEDS: Ipratropium/Albuterol Neb 3 ML IH SCH (20:38)
[2017-04-18] MEDS: Budesonide/Formoterol 160/4.5 MDI IH SCH (20:39)
[2017-04-18] MEDS: ALPRAZolam 0.5 MG TABLET PO SCH (22:14)
[2017-04-18] MEDS: *HR* Morphine Sulfate SR (12 HR) 30 MG TABLET.ER PO SCH (22:14)
[2017-04-18] MEDS: Carisoprodol 350 MG TABLET PO SCH (22:14)
[2017-04-18] MEDS: Lactobacillus 1 EACH CAP.SPRINK PO SCH (22:14)
[2017-04-19] MEDS: 0.9 % Sodium Chloride 1,000 ML IVC SCH ×3 (02:15→11:06)
[2017-04-19] MEDS: Ipratropium/Albuterol Neb 3 ML IH SCH ×2 (04:41→10:25)
[2017-04-19 06:05] LABS: Basophils % 0.2 %; Eosinophils # 0.2 K/mcL (0.0-0.6); Eosinophils % 2.5 %; Hematocrit 35.7 % (35.3-44.9); Immature Granulocytes % 0.6 % (0-4); Lymphocytes # 1.2 K/mcL (0.6-4.6); Lymphocytes % 14.5 %; Mean Corpuscular HGB Conc 33.6 g/dL (31.6-35.5); Mean Corpuscular Hemoglobin 31.1 pg (28.0-33.3); Mean Corpuscular Volume 92.5 fL (83.0-100.0); Mean Platelet Volume 10.3 fL (9.4-12.4); Monocytes # 0.5 K/mcL (0.0-1.3); Monocytes % 6.1 %; Neutrophils # 6.3 K/mcL (1.6-8.9); Platelet Count 137 K/mcL (140-400); Red Blood Count 3.86 M/mcL (3.82-4.97); Red Cell Distribution Width 12.3 % (11.5-14.5); Segmented Neutrophils % 76.1 %
[2017-04-19 06:29] LABS: BUN/Creatinine Ratio 15 (6-26); Blood Urea Nitrogen 9 mg/dL (7-20); Calcium 8.8 mg/dL (8.6-10.8); Carbon Dioxide 24 mEq/L (19-29); Chloride 106 mEq/L (98-109); Glucose 92 mg/dL (70-99); Osmolality,Calculated 286 (280-300); Potassium 3.7 mEq/L (3.5-4.5); Sodium 139 mEq/L (136-145); eGFR For African Americans > 60 (> 60); eGFR For Non-African Americans > 60 (> 60)
[2017-04-19] MEDS: ALPRAZolam 0.5 MG TABLET PO SCH (08:51)
[2017-04-19] MEDS: Carisoprodol 350 MG TABLET PO SCH (08:51)
[2017-04-19] MEDS: *HR* Metformin 500 MG TABLET PO SCH (08:51)
[2017-04-19] MEDS: Lactobacillus 1 EACH CAP.SPRINK PO SCH (08:51)
[2017-04-19] MEDS: *HR* Morphine Sulfate SR (12 HR) 30 MG TABLET.ER PO SCH (08:52)
[2017-04-19] MEDS ORDERED: predniSONE 10 MG TABLET PO SCH (09:00)
[2017-04-19] MEDS ORDERED: Cholecalciferol (D-3) 1,000 UNIT TABLET PO SCH (09:00)
[2017-04-19] MEDS ORDERED: Folic Acid 1 MG TABLET PO SCH (09:00)
[2017-04-19] MEDS ORDERED: Aspirin Enteric Coated 81 MG Tablet PO SCH (09:00)
[2017-04-19 10:19] VITALS: BP 158/73
[2017-04-19] MEDS: Budesonide/Formoterol 160/4.5 MDI IH SCH (10:29)
[2017-04-19] MEDS ORDERED: *HR* Morphine Sulfate SR (12 HR) 30 MG TABLET.ER PO SCH (12:00)
--- NOTE | 2017-04-19 14:21 | Internal Med History&Physical ---
Date of Encounter: 04/19/17 Time of Encounter: 13:55 Assessment and Plan (1) Pneumonia Current visit: No Status: Acute She was started on Rocephin and Zithromax with Lactobacillus through the emergency room. Qualifiers: Pneumonia type: due to unspecified organism Laterality: right Lung location: lower lobe of lung Qualified Code(s): J18.1 - Lobar pneumonia, unspecified organism Internal Medicine - H&P: HPI Chief complaint: Cough and dyspnea Admitted From: Emergency Dept Plans for Post Hospital Care: Home History of present illness: Ms. Diana is a 81 year old female who came to emergency room stating she had three-day history of cough productive of greenish sputum. She had myalgias and arthralgias with dyspnea. She was evaluated emergency room and tested negative for influenza. She was felt to have right lower lobe pneumonia and was admitted to [facility] floor for ongoing care needs. Her respiratory history is significant for being a lifelong nonsmoker. She has a diagnosis of asthma. She does not use home oxygen. She denies other known chronic lung disease. Past Med Surg Social Fam HX - Past Medical History Medical history: arthritis, asthma, diabetes, fibromyalgia, GERD, hyperlipidemia , hypertension, thyroid disease Psychiatric history: anxiety, depression - Past Surgical History Surgical History: , KATHY/BSO - Social History Smoking Status: Never smoker Smokeless Tobacco Status: No Alcohol use: none Drug use: none - Family History Mother Living Status: Hx Family Cancer: Yes (colon) Father Living Status: Hx Family Cardiac Disorders: Yes Internal Medicine - H&P: Meds ALPRAZolam [Xanax 0.5 MG Tablet] 0.5 mg PO TID 08/12/15 [History] Alendronate Sodium [Fosamax] 70 mg PO QWEEK 08/12/15 [History] Aspirin [Adult Low Dose Aspirin EC] 81 mg PO DAILY 08/12/15 [History] Carisoprodol [Soma] 350 mg PO BID 08/12/15 [History] Ergocalciferol (VITAMIN D2) [Drisdol (50,000 Unit)] 50,000 unit PO QWEEK [History] Levothyroxine [Synthroid] 75 mcg PO DAILY 08/12/15 [History] Metformin HCl [Riomet] 500 mg PO BID 08/12/15 [History] Metoprolol [Lopressor] 50 mg DAILY 08/12/15 [History] Morphine Sulfate ER (24 HR) [Morphine Sulfate ER Caps] 90 mg PO BID 08/12/15 [ History] PredniSONE [Latoya] 10 mg PO DAILY 08/12/15 [History] Simvastatin [Zocor] 40 mg PO HS 08/12/15 [History] TraZODone 100 mg PO DAILY 08/12/15 [History] Lactobacillus [Culturelle] 1 each PO BID #6 cap.sprink 10/30/16 [Rx] Albuterol Sulfate [Albuterol Inhaler] 2 puff IH Q4H PRN 04/18/17 [History] Budesonide/Formoterol 160/4.5 [Symbicort 160/4.5] 1 puff IH BIDR 04/18/17 [ History] Ferrous Gluconate 324 mg PO DAILY 04/18/17 [History] Folic Acid 1 mg PO DAILY 04/18/17 [History] Ipratropium/Albuterol Neb [Duoneb] 3 ml IH Q6HR 04/18/17 [History] Losartan Potassium [Cozaar] 100 mg PO DAILY 04/18/17 [History] Morphine Sulfate [Morphine Sulfate ER] 100 mg PO BID 04/18/17 [History] Omeprazole 40 mg PO DAILY 04/18/17 [History] 3 Allergy/AdvReac Type Severity Reaction Status Date / Time amitriptyline [From Elavil] AdvReac Hallucinati Verified 10/29/16 13:06 ng fluoxetine [From Prozac] AdvReac Difficulty Verified 12/09/15 12:16 Breathing All Systems PM: A 10-system review of systems was performed and is negative for pertinent findings except as documented above in the HPI. Review of systems: Review of systems from her October 2016 [facility] hospitalization were reviewed and revised as below. Gen.: Her weight has decreased from 79.407 kg in 10/30/2016 to 77.11 kg at present. Cardiovascular: She has history of hypertension but denies VT heart failure angina DVT or pulmonary embolus Respiratory: As per history of present illness GI: She denies disorders of her liver gallbladder or exocrine pancreas : She denies hematuria dysuria or kidney stones Neurologic: She denies large distribution strokes or seizures Endocrine: She was diagnosed with DM2 approximately 2006. She has hypothyroidism and hyperlipidemia Hematology/oncology: She has history of anemia which has resolved. She denies internal malignancies Psychiatric: She has anxiety and depression but denies other mental health diagnoses Musk skeletal: She has DJD, osteoporosis, and polymyalgia rheumatica. - Constitutional Vitals: Temp Pulse Resp BP Pulse Ox 98.8 F 57 17 158/73 98 04/19/17 10:00 04/19/17 10:00 04/19/17 10:00 04/19/17 10:00 04/19/17 10:00 Exam: Gen.: She is a well-developed well-nourished female who appears in no acute distress at present time HEENT: Head is atraumatic and normocephalic. Eyes: EOMI. There is no scleral icterus. Mouth: Mucosa is moist. Neck: Supple and nontender. There is no thyromegaly or adenopathy noted. Heart: Regular without murmurs gallops or ectopics Lungs: No wheezes or crackles are heard. Abdomen: Soft and nontender. No masses or guarding are noted. Extremities: There is no cyanosis edema or clubbing noted. Dorsalis pedis and posttibial pulses are trace palpable bilaterally. Neurologic: Mental status: She is talkative and a good historian. Cranial nerves: Smile is symmetric. Forehead wrinkles bilaterally. Tongue protrudes midline. EOMI. Motor: There is no pronator drift. Cerebellar: Finger to nose is intact bilaterally. Skin: Warm and dry Internal Med - H&P Results - Labs CBC & Chem 7: 04/19/17 04:30 04/19/17 04:30 Labs: Short CBC 04/18/17 04/19/17 Range/Units 15:40 04:30 WBC 10.2 8.3 (4.3-11.1) K/mcL Hgb 14.5 12.0 D (11.5-15.4) g/dL Hct 44.8 35.7 (35.3-44.9) % Plt Count 142 137 L (140-400) K/mcL Neutrophils # 9.0 H 6.3 (1.6-8.9) K/mcL BMP 04/18/17 04/19/17 15:40 04:30 Sodium 141 139 Potassium 4.3 3.7 Chloride 103 106 Carbon Dioxide 25 24 BUN 11 9 Creatinine 0.72 0.61 Glucose 134 H 92 Calcium 10.1 8.8 Liver Function 04/18/ Range/Units 15:40 Total Bilirubin 0.6 (0.2-1.2) mg/dL AST 17 (5-34) Units/L ALT 13 (0-55) Units/L Alkaline Phosphatase 45 (38-126) Units/L Albumin 3.2 L (3.5-5.0) g/dL
--- NOTE | 2017-04-19 14:29 | Discharge Summary ---
Date of Encounter: 04/19/17 Time of Encounter: 13:55 - Discharge Diagnosis (1) Pneumonia Priority: Primary Status: Acute Qualifiers: Pneumonia type: due to unspecified organism Laterality: right Lung location: lower lobe of lung Qualified Code(s): J18.1 - Lobar pneumonia, unspecified organism - Discharge Medications Prescriptions: Cefuroxime PO [Ceftin] 500 mg PO Q12HR #10 tablet Azithromycin [Zithromax] 250 mg PO DAILY #5 tablet Lactobacillus [Culturelle] 1 each PO BID #10 cap.sprink Home Medications: ALPRAZolam [Xanax 0.5 MG Tablet] 0.5 mg PO TID 08/12/15 [History] Alendronate Sodium [Fosamax] 70 mg PO QWEEK 08/12/15 [History] Aspirin [Adult Low Dose Aspirin EC] 81 mg PO DAILY 08/12/15 [History] Carisoprodol [Soma] 350 mg PO BID 08/12/15 [History] Ergocalciferol (VITAMIN D2) [Drisdol (50,000 Unit)] 50,000 unit PO QWEEK [History] Levothyroxine [Synthroid] 75 mcg PO DAILY 08/12/15 [History] Metformin HCl [Riomet] 500 mg PO BID 08/12/15 [History] Metoprolol [Lopressor] 50 mg DAILY 08/12/15 [History] Morphine Sulfate ER (24 HR) [Morphine Sulfate ER Caps] 90 mg PO BID 08/12/15 [ History] PredniSONE [Latoya] 10 mg PO DAILY 08/12/15 [History] Simvastatin [Zocor] 40 mg PO HS 08/12/15 [History] TraZODone 100 mg PO DAILY 08/12/15 [History] Lactobacillus [Culturelle] 1 each PO BID #6 cap.sprink 10/30/16 [Rx] Albuterol Sulfate [Albuterol Inhaler] 2 puff IH Q4H PRN 04/18/17 [History] Budesonide/Formoterol 160/4.5 [Symbicort 160/4.5] 1 puff IH BIDR 04/18/17 [ History] Ferrous Gluconate 324 mg PO DAILY 04/18/17 [History] Folic Acid 1 mg PO DAILY 04/18/17 [History] Ipratropium/Albuterol Neb [Duoneb] 3 ml IH Q6HR 04/18/17 [History] Losartan Potassium [Cozaar] 100 mg PO DAILY 04/18/17 [History] Morphine Sulfate [Morphine Sulfate ER] 100 mg PO BID 04/18/17 [History] Omeprazole 40 mg PO DAILY 04/18/17 [History] Azithromycin [Zithromax] 250 mg PO DAILY #5 tablet 04/19/17 [Rx] Cefuroxime PO [Ceftin] 500 mg PO Q12HR #10 tablet 04/19/17 [Rx] Lactobacillus [Culturelle] 1 each PO BID #10 cap.sprink 04/19/17 [Rx] Allergies/Adverse Reactions: 3 Allergy/AdvReac Type Severity Reaction Status Date / Time amitriptyline [From Elavil] AdvReac Hallucinati Verified 10/29/16 13:06 ng fluoxetine [From Prozac] AdvReac Difficulty Verified 12/09/15 12:16 Breathing Date of admission: 04/18/17 15:32 Primary care physician: Reinaldo Andres MD Consults: 04/18/17 18:02 Consult to [employer]ator [employer] [CONS] Routine Reason for SW Consult: pt stated she may want home health - Patient Status Disposition: Home, Self-Care Condition: Fair Overall status at discharge: patient is progressing back to baseline - Discharge Instructions Follow Up With: Reinaldo Andres MD [Primary Care Provider] - 1 week - Diet and Activity Activity: resume usual activities as tolerated Diet: advance to your usual diet Hospital course: Ms. Diana is a 81 year old female who came to emergency room stating she had three-day history of cough productive of greenish sputum. She had myalgias and arthralgias with dyspnea. She was evaluated emergency room and tested negative for influenza. She was felt to have right lower lobe pneumonia and was admitted to [facility] floor for ongoing care needs. Initial orders written by the emergency room physician. I saw her on April 19 and performed a history physical and discharge. She was given Rocephin and Zithromax in emergency room. She had a temperature up to 100 in the casualty underwriter hours of April 19. By the time I saw her the afternoon of April 19 she felt improved and safe for discharge home. Her vital signs remained stable. The WBC had improved to 8.3 with resolution of the left shift. She will be discharged home to follow with her PCP Dr. Andres within 1 week. Room air oximetry be checked prior to discharge. She will continue with antibiotics and probiotic for 5 additional days for the right lower lobe pneumonia. - Time Spent with Patient Total time spent providing and/or coordinating discharge services: - Constitutional Vitals: Temp Pulse Resp BP Pulse Ox 98.8 F 57 17 158/73 98 04/19/17 10:00 04/19/17 10:00 04/19/17 10:00 04/19/17 10:00 04/19/17 10:00
[2017-04-19] MEDS ORDERED: traZODone 50 MG TABLET PO SCH (21:00)
== END 2017-04-19 15:45 | disposition home or self-care (01) ==
LOC: INPPIK 14:30 → EMEROOPIK 14:30 → INPPIK 16:40
PROVIDERS: ADMIT Internal Medicine; ATTEND Internal Medicine

== ENCOUNTER 2018-04-22 09:42 | Observation (INO) ==
[2018-04-22] MEDS ORDERED: 0.9 % Sodium Chloride 1,000 ML IVC ONE (10:47)
--- NOTE | 2018-04-22 10:50 | Emergency Department Note ---
Disposition Clinical Impression: Right lower lobe pneumonia Qualifiers: Pneumonia type: due to unspecified organism Qualified Code(s): J18.1 - Lobar pneumonia, unspecified organism Disposition: Home, Self-Care Condition: Fair Referrals: Reinaldo Andres MD [Primary Care Provider] - Forms: ED Satisfaction Letter Time of Disposition: 12:12 URI/Sore Throat HPI - General Chief Complaint: ED Upper Respiratory Infection Stated Complaint: FEVER, PRODUCTIVE COUGH Time Seen by Provider: 04/22/18 09:58 Source: patient, family Mode of arrival: private vehicle Limitations: no limitations Nursing Notes Reviewed: Yes Vital Signs Reviewed: Yes - History of Present Illness Pt Subjective Complaint: fever, cough Onset (ago): day(s) (2 days of illness) Duration: constant, gradually worsening Severity: moderate Improves with: nothing Worsens with: nothing If sputum, description: yellow (With some blood streaks) Associated symptoms: Reports: fever, chills, myalgias, cough. Denies: nasal congestion, sore throat, dysuria Treatments prior to arrival: none - Related Data Home Medications Medication Instructions Recorded Confirmed ALPRAZolam [Xanax 0.5 MG Tablet] 0.5 mg PO TID 08/12/15 04/22/18 Alendronate Sodium [Fosamax] 70 mg PO QWEEK 08/12/15 04/22/18 Aspirin [Adult Low Dose Aspirin EC] 81 mg PO DAILY 08/12/15 04/22/18 Carisoprodol [Soma] 350 mg PO BID 08/12/15 04/22/18 Ergocalciferol (VITAMIN D2) 50,000 unit PO QWEEK 08/12/15 04/22/18 [Drisdol (50,000 Unit)] Levothyroxine [Synthroid] 75 mcg PO DAILY 08/12/15 04/22/18 Metformin HCl [Riomet] 500 mg PO BID 08/12/15 04/22/18 Metoprolol [Lopressor] 50 mg DAILY 08/12/15 04/22/18 Morphine Sulfate ER (24 HR) 90 mg PO BID 08/12/15 04/22/18 [Morphine Sulfate ER Caps] PredniSONE [Latoya] 10 mg PO DAILY 08/12/15 04/22/18 Simvastatin [Zocor] 40 mg PO HS 08/12/15 04/22/18 TraZODone 100 mg PO DAILY 08/12/15 04/22/18 Albuterol Sulfate [Albuterol 2 puff IH Q4H PRN 04/18/17 04/22/18 Inhaler] Budesonide/Formoterol 160/4.5 1 puff IH BIDR 04/18/17 04/22/18 [Symbicort 160/4.5] Ferrous Gluconate 324 mg PO DAILY 04/18/17 04/22/18 Folic Acid 1 mg PO DAILY 04/18/17 04/22/18 Ipratropium/Albuterol Neb [Duoneb] 3 ml IH Q6HR 04/18/17 04/22/18 Losartan Potassium [Cozaar] 100 mg PO DAILY 04/18/17 04/22/18 Morphine Sulfate [Morphine Sulfate 100 mg PO BID 04/18/17 04/22/18 ER] Omeprazole 40 mg PO DAILY 04/18/17 04/22/18 Allergies Allergy/AdvReac Type Severity Reaction Status Date / Time amitriptyline [From Elavil] AdvReac Hallucinati Verified 07/21/17 13:08 ng fluoxetine [From Prozac] AdvReac Difficulty Verified 07/21/17 13:08 Breathing All systems ED: reviewed and negative except as stated. Constitutional: Reports: fever, chills ENT ED: Denies: ear pain, throat pain, congestion Cardiovascular: Denies: chest pain, palpitations Respiratory: Reports: cough, hemoptysis. Denies: dyspnea, wheezes Gastrointestinal: Denies: abdominal pain, nausea, vomiting, diarrhea Genitourinary: Denies: urgency, dysuria, frequency Musculoskeletal: Denies: back pain Integumentary: Denies: rash Neurological: Reports: other (Patient feels generalized weakness). Denies: headache URI PMH - Past Medical History Medical history: Reports: arthritis, asthma, diabetes, fibromyalgia, GERD, hyperlipidemia, hypertension, thyroid disease Surgical history: Reports: orthopedic, other (Cervical fusion, Chawla shahrzad and removal) Surgical history: Reports: , KATHY/BSO Psychiatric history: Reports: anxiety, depression - Social History Smoking Status: Never smoker Alcohol use: Reports: none Drug use: Reports: none Physical Exam - General Limitations: no limitations General appearance: alert, in no apparent distress - Head Head exam: atraumatic, normocephalic, normal inspection - Eye Eye exam: Present: normal appearance, PERRL, EOMI. Absent: scleral icterus, c onjunctival injection - ENT ENT exam: normal exam, normal oropharynx, mucous membranes moist, TM's normal bilaterally, normal external ear exam - Neck Neck exam: Present: normal inspection, full ROM, trachea midline. Absent: meningismus, lymphadenopathy - Chest Chest inspection: Present: normal inspection, symmetric chest wall rise. Absent: tenderness - Respiratory Respiratory exam: Absent: normal lung sounds bilaterally (Lungs are clear bilaterally except for little bit of crackling noise at the base of the left long posteriorly), respiratory distress, wheezes - Cardiovascular Cardiovascular exam: Present: regular rate, normal rhythm, normal heart sounds - Abdominal Exam Abdominal exam: Present: soft, Non-Tender, normal bowel sounds - Extremities Exam Extremities exam: Present: normal inspection. Absent: pedal edema - Neurological Exam Neurological exam: Present: alert, oriented X3. Absent: motor sensory deficit - Psychiatric Psychiatric exam: Present: normal affect, normal mood - Skin Skin exam: Present: warm, dry Course Course Narrative: Patient presents with fever and cough. No other particular complaints. Nothing found on physical exam except for fever and a faint little bit of crackling in the base of the left lung. Vital signs are good. No signs of toxicity. I will check labs and chest x-ray. We will check her urine as well. She did have a flu shot this year but on the test her for flu anyway. Disposition will be based on diagnostic results and reevaluation. - Reevaluation(s) Reevaluation #1: Chest x-ray shows right lower lobe pneumonia. White count 13,000 but lactate is fine and the rest of the tests are negative and clinically no signs of toxicity. Patient is chronically on steroids and is weak at home and her oxygen level is 90% on room air so I think is better to admit her to the hospital for couple rounds of IV antibiotics before risking discharge. I discussed this with her and she agrees. I will talk to the hospitalist. Time: 12:10 - Consultations Consultation #1: Dr. Becerril, hospitalist - I discussed the case with the hospitalist. He has accepted the patient for admission. Time: 12:10 Vital Signs Temperature 102.2 F H 04/22/18 09:44 Pulse Rate 92 04/22/18 09:44 Respiratory Rate 18 04/22/18 09:44 Blood Pressure 145/84 04/22/18 09:44 O2 Sat by Pulse Oximetry 90 04/22/18 09:44 Temperature 102.2 F H 04/22/18 09:44 Pulse Rate 71 04/22/18 11:29 Respiratory Rate 18 04/22/18 11:29 Blood Pressure 128/58 04/22/18 11:29 O2 Sat by Pulse Oximetry 91 04/22/18 11:29 Oxygen Delivery Oxygen Delivery Room Air Upper Respiratory Infection - Medical Records Medical records reviewed: Yes I reviewed the patient's medical records. - Lab Data Lab results reviewed: Yes I reviewed the patient's lab results. Result diagrams: 04/22/18 10:55 04/22/18 10:55 Lab Results 04/22/18 04/22/18 04/22/18 Range/Units 10:55 10:55 10:55 WBC 13.1 H (4.3-11.1) K/mcL RBC 4.36 (3.82-4.97) M/mcL Hgb 13.7 (11.5-15.4) g/dL Hct 41.7 (35.3-44.9) % MCV 95.6 (83.0-100.0) fL MCH 31.4 (28.0-33.3) pg MCHC 32.9 (31.6-35.5) g/dL RDW 12.7 (11.5-14.5) % Plt Count 153 (140-400) K/mcL MPV 9.7 (9.4-12.4) fL Immature Gran % 1.0 (0-4) % Seg Neutrophils % 88.5 % Lymphocytes % 5.3 % Monocytes % 4.8 % Eosinophils % 0.2 % Basophils % 0.2 % Neutrophils # 11.6 H (1.6-8.9) K/mcL Lymphocytes # 0.7 (0.6-4.6) K/mcL Monocytes # 0.6 (0.0-1.3) K/mcL Eosinophils # 0.0 (0.0-0.6) K/mcL Basophils # 0.0 (0.0-0.2) K/mcL Sodium 136 (136-145) mEq/L Potassium 4.2 (3.5-5.1) mEq/L Chloride 103 (98-107) mEq/L Carbon Dioxide 28 (23-29) mEq/L BUN 20 (8-23) mg/dL Creatinine 0.83 (0.60-1.20) mg/dL Est GFR ( Amer) > 60 (> 60) Est GFR (Non-Af Amer) > 60 (> 60) BUN/Creatinine Ratio 24 (6-26) Glucose 149 H (70-105) mg/dL Calculated Osmolality 287 (280-300) Lactic Acid 1.5 (0.5-2.2) mmol/L Calcium 8.9 (8.6-10.3) mg/dL - Radiology Data Radiology results reviewed: Yes I reviewed the patient's radiology results.
[2018-04-22 11:19] LABS: Basophils % 0.2 %; Eosinophils % 0.2 %; Hematocrit 41.7 % (35.3-44.9); Hemoglobin 13.7 g/dL (11.5-15.4); Lymphocytes # 0.7 K/mcL (0.6-4.6); Lymphocytes % 5.3 %; Mean Corpuscular HGB Conc 32.9 g/dL (31.6-35.5); Mean Corpuscular Hemoglobin 31.4 pg (28.0-33.3); Mean Corpuscular Volume 95.6 fL (83.0-100.0); Mean Platelet Volume 9.7 fL (9.4-12.4); Monocytes # 0.6 K/mcL (0.0-1.3); Monocytes % 4.8 %; Neutrophils # 11.6 K/mcL (1.6-8.9); Platelet Count 153 K/mcL (140-400); Red Blood Count 4.36 M/mcL (3.82-4.97); Red Cell Distribution Width 12.7 % (11.5-14.5); Segmented Neutrophils % 88.5 %
[2018-04-22 11:32] LABS: BUN/Creatinine Ratio 24 (6-26); Blood Urea Nitrogen 20 mg/dL (8-23); Calcium 8.9 mg/dL (8.6-10.3); Carbon Dioxide 28 mEq/L (23-29); Chloride 103 mEq/L (98-107); Glucose 149 mg/dL (70-105); Osmolality,Calculated 287 (280-300); Potassium 4.2 mEq/L (3.5-5.1); Sodium 136 mEq/L (136-145); eGFR For Non-African Americans > 60 (> 60)
[2018-04-22] MEDS ORDERED: Azithromycin 500 MG in D5% in Water 250 ML IVPB ONE (11:51)
[2018-04-22] MEDS ORDERED: Naloxone 0.4 MG/ML INJ IVP PRN (14:43)
[2018-04-22] MEDS ORDERED: cefTRIAXone 1,000 MG in 0.9 % Sodium Chloride Mini Bag 100 ML IVPB SCH (14:43)
[2018-04-22] MEDS ORDERED: Alendronate Sodium [Fosamax] 70 MG PO SCH (14:43)
[2018-04-22] MEDS: 0.9 % Sodium Chloride 1,000 ML IVC SCH (15:26)
[2018-04-22] MEDS: ALPRAZolam 0.5 MG TABLET PO SCH ×2 (15:27→20:26)
[2018-04-22] MEDS: Ipratropium/Albuterol Neb 3 ML IH SCH ×2 (16:41→21:53)
[2018-04-22] MEDS: *HR* Metformin 500 MG TABLET PO SCH (17:02)
[2018-04-22] MEDS: Carisoprodol 350 MG TABLET PO SCH (20:25)
[2018-04-22] MEDS: *HR* Morphine Sulfate SR (12 HR) 30 MG TABLET.ER PO SCH (20:26)
[2018-04-22] MEDS ORDERED: MORPHINE SULFATE 100 MG PO SCH (21:00)
[2018-04-22] MEDS: Budesonide/Formoterol 160/4.5 1 PUFF INH IH SCH (21:53)
[2018-04-23] MEDS: 0.9 % Sodium Chloride 1,000 ML IVC SCH (01:53)
[2018-04-23] MEDS: Ipratropium/Albuterol Neb 3 ML IH SCH ×2 (03:13→11:07)
[2018-04-23] MEDS: *HR* Metformin 500 MG TABLET PO SCH ×2 (08:16→17:49)
[2018-04-23] MEDS: *HR* Morphine Sulfate SR (12 HR) 30 MG TABLET.ER PO SCH ×2 (09:47→21:09)
[2018-04-23] MEDS: Aspirin Enteric Coated 81 MG Tablet PO SCH (09:47)
[2018-04-23] MEDS: ALPRAZolam 0.5 MG TABLET PO SCH ×3 (09:49→21:09)
[2018-04-23] MEDS: Carisoprodol 350 MG TABLET PO SCH ×2 (09:49→21:09)
[2018-04-23] MEDS: predniSONE 10 MG TABLET PO SCH (09:49)
[2018-04-23] MEDS: Azithromycin 500 MG in D5% in Water 250 ML IVPB SCH (09:51)
--- NOTE | 2018-04-23 10:44 | Internal Med History&Physical ---
Date of Encounter: 04/23/18 Time of Encounter: 10:10 Assessment and Plan (1) Pneumonia Current visit: No Status: Acute She was started on Rocephin and Zithromax in emergency room. These will be continued and lactobacillus will be added. Chest CT will be done to further evaluate. Qualifiers: Pneumonia type: due to unspecified organism Laterality: right Lung location: lower lobe of lung Qualified Code(s): J18.1 - Lobar pneumonia, unspecified organism (2) Hypertension Current visit: Yes Status: Chronic Continue Cozaar and Lopressor. Qualifiers: Hypertension type: essential hypertension Qualified Code(s): I10 - Essential (primary) hypertension (3) DM type 2 (diabetes mellitus, type 2) Current visit: Yes Status: Chronic Hemoglobin A1c was 6.0% on 12/27/2017. Continue metformin Qualifiers: Diabetes mellitus fci insulin use: without fci use Diabetes mellitus complication status: without complication Qualified Code(s): E11.9 - Type 2 diabetes mellitus without complications (4) Hypothyroidism Current visit: Yes Status: Chronic TSH was normal at 2.267 on 12/27/2017. Continue present dose Synthroid. Qualifiers: Hypothyroidism type: unspecified Qualified Code(s): E03.9 - Hypothyroidism, unspecified Internal Medicine - H&P: HPI Chief complaint: Dyspnea and cough Admitted From: Emergency Dept Plans for Post Hospital Care: Home History of present illness: Ms. Diana is a 82 year old female who came to emergency room stating she had dyspnea with cough productive of [place] sputum with occasional blood for the previous 2 days. She spiked fever at home of 102.4 so came to emergency room. She was evaluated and found to have multifocal pneumonia from early in the right lung. She was admitted to [facility] floor for ongoing care needs. Her respiratory history is significant for being a lifelong nonsmoker. She has a diagnosis of asthma. She does not use home oxygen. She denies other known chronic lung disease. Past Med Surg Social Fam HX - Past Medical History Medical history: arthritis, asthma, diabetes, fibromyalgia, GERD, hyperlipidemia, hypertension, thyroid disease Additional medical history: spinal surgery Psychiatric history: anxiety, depression - Past Surgical History Surgical History: , KATHY/BSO Additional surgical history: spine surgery - Social History Smoking Status: Never smoker Smokeless Tobacco Status: No Alcohol use: none Drug use: none - Family History Mother Adopted: No Family Member Ethnicity: Non- Living Status: Age at : 93 Cause of : Dementia Hx Family Cardiac Disorders: No Hx Family Respiratory Disorders: No Hx Family Cancer: Yes (colon) Hx Family GI Disorders: No Hx Family Genitourinary Disorders: No Hx Family Endocrine Disorder: No Hx Family Musculoskeletal Disorders: No Hx Family Neuromuscular Disorders: No Hx Family Neurologic Disorders: No Hx Family HEENT Disorders: No Hx Family Autoimmune Disorders: No Hx Family Reproductive Disorders: No Hx Family Psychosocial Disorders: No Hx Family Medical Disorders: No Father Adopted: No Family Member Ethnicity: Non- Living Status: Age at : 59 Cause of : [place] Hx Family Cardiac Disorders: Yes Hx Family Respiratory Disorders: Yes Hx Family Cancer: No Hx Family GI Disorders: No Hx Family Genitourinary Disorders: No Hx Family Endocrine Disorder: No Hx Family Musculoskeletal Disorders: No Hx Family Neuromuscular Disorders: No Hx Family Neurologic Disorders: No Hx Family HEENT Disorders: No Hx Family Autoimmune Disorders: No Hx Family Reproductive Disorders: No Hx Family Psychosocial Disorders: No Hx Family Medical Disorders: No Internal Medicine - H&P: Meds ALPRAZolam [Xanax 0.5 MG Tablet] 0.5 mg PO TID 08/12/15 [History] Alendronate Sodium [Fosamax] 70 mg PO QWEEK 08/12/15 [History] Aspirin [Adult Low Dose Aspirin EC] 81 mg PO DAILY 08/12/15 [History] Carisoprodol [Soma] 350 mg PO BID 08/12/15 [History] Ergocalciferol (VITAMIN D2) [Drisdol (50,000 Unit)] 50,000 unit PO QWEEK 08/12/15 [History] Levothyroxine [Synthroid] 75 mcg PO DAILY 08/12/15 [History] Metformin HCl [Riomet] 500 mg PO BID 08/12/15 [History] Metoprolol [Lopressor] 50 mg DAILY 08/12/15 [History] Morphine Sulfate ER (24 HR) [Morphine Sulfate ER Caps] 90 mg PO BID 08/12/15 [History] PredniSONE [Latoya] 10 mg PO DAILY 08/12/15 [History] Simvastatin [Zocor] 40 mg PO HS 08/12/15 [History] TraZODone 100 mg PO DAILY 08/12/15 [History] Albuterol Sulfate [Albuterol Inhaler] 2 puff IH Q4H PRN 04/18/17 [History] Budesonide/Formoterol 160/4.5 [Symbicort 160/4.5] 1 puff IH BIDR 04/18/17 [History] Ferrous Gluconate 324 mg PO DAILY 04/18/17 [History] Folic Acid 1 mg PO DAILY 04/18/17 [History] Ipratropium/Albuterol Neb [Duoneb] 3 ml IH Q6HR 04/18/17 [History] Losartan Potassium [Cozaar] 100 mg PO DAILY 04/18/17 [History] Morphine Sulfate [Morphine Sulfate ER] 100 mg PO BID 04/18/17 [History] Omeprazole 40 mg PO DAILY 04/18/17 [History] Allergy/AdvReac Type Severity Reaction Status Date / Time amitriptyline [From Elavil] AdvReac Hallucinati Verified 07/21/17 13:08 ng fluoxetine [From Prozac] AdvReac Difficulty Verified 07/21/17 13:08 Breathing All Systems PM: A 10-system review of systems was performed and is negative for pertinent findings except as documented above in the HPI. Review of systems: Review of systems from her March 2017 [facility] hospitalization were reviewed and revised as below. Gen.: Her weight has minimally changed from 79.407 kg in 10/30/2016 to 78.8 kg at present. Cardiovascular: She has history of hypertension but denies [place] heart failure angina DVT or pulmonary embolus Respiratory: As per history of present illness GI: She denies disorders of her liver gallbladder or exocrine pancreas : She denies hematuria dysuria or kidney stones Neurologic: She denies large distribution strokes or seizures Endocrine: She was diagnosed with DM2 approximately 2006. She has hypothyroidism and hyperlipidemia Hematology/oncology: She has history of anemia which has resolved. She denies internal malignancies Psychiatric: She has anxiety and depression but denies other mental health diagnoses Musk skeletal: She has DJD, osteoporosis, fibromyalgia and polymyalgia rheumatica. - Constitutional Vitals: Temp Pulse Resp BP Pulse Ox 98.8 F 84 18 131/59 97 04/23/18 10:20 04/23/18 10:20 04/23/18 10:20 04/23/18 10:20 04/23/18 10:20 Exam: Gen.: She is a well-developed overweight female resting in bed who appears in no significant distress at present time HEENT: Head is atraumatic and normocephalic. Eyes: EOMI. There is no scleral icterus. Mouth: Mucosa is moist. Neck: Supple and nontender. There is no thyromegaly or adenopathy noted. Heart: Regular without murmurs gallops or ectopics Lungs: No wheezes, egophony or crackles are heard. Abdomen: Soft and nontender. No masses or guarding are noted. Extremities: There is no cyanosis edema or clubbing noted. Dorsalis pedis and posterior tibial pulses are trace palpable bilaterally. Her feet are warm to touch. Neurologic: Mental status: She is talkative and a good historian. Cranial nerves: Smile is symmetric. Forehead wrinkles bilaterally. Tongue protrudes midline. EOMI. Motor: There is no pronator drift. Cerebellar: Finger to nose is intact bilaterally. Skin: Warm and dry Internal Med - H&P Results - Labs CBC & Chem 7: 04/22/18 10:55 04/22/18 10:55 Labs: Short CBC 04/22/18 Range/Units 10:55 WBC 13.1 H (4.3-11.1) K/mcL Hgb 13.7 (11.5-15.4) g/dL Hct 41.7 (35.3-44.9) % Plt Count 153 (140-400) K/mcL Neutrophils # 11.6 H (1.6-8.9) K/mcL BMP 04/22/18 10:55 Sodium 136 Potassium 4.2 Chloride 103 Carbon Dioxide 28 BUN 20 Creatinine 0.83 Glucose 149 H Calcium 8.9 - Impressions ITS Impressions Chest X-Ray 04/22/18 10:46 IMPRESSION: Airspace consolidation in the right upper lobe and right lung base suggesting multifocal pneumonia of the right lung. Recommend follow-up to resolution. D/ / Ranjith Sánchez MD / Ranjith Sánchez MD Interpreting Provider: Ranjith Sánchez MD
[2018-04-23] MEDS ORDERED: Albuterol 2.5 MG/3 ML NEBULIZER IH PRN (10:51)
[2018-04-23] MEDS: Budesonide/Formoterol 160/4.5 1 PUFF INH IH SCH ×2 (11:15→22:43)
[2018-04-23] MEDS: cefTRIAXone 1,000 MG in Water for inj. (sterile) 20 ML 10 ML IVP SCH (11:39)
[2018-04-23] MEDS: Lactobacillus 1 EACH CAP.SPRINK PO SCH (21:09)
[2018-04-24] MEDS ORDERED: Acetaminophen 325 MG TABLET PO PRN (05:14)
[2018-04-24 05:40] LABS: Basophils % 0.2 %; Eosinophils # 0.2 K/mcL (0.0-0.6); Eosinophils % 2.7 %; Hematocrit 42.5 % (35.3-44.9); Hemoglobin 13.8 g/dL (11.5-15.4); Immature Granulocytes % 0.5 % (0-4); Lymphocytes # 1.7 K/mcL (0.6-4.6); Mean Corpuscular HGB Conc 32.5 g/dL (31.6-35.5); Mean Corpuscular Hemoglobin 31.2 pg (28.0-33.3); Mean Corpuscular Volume 95.9 fL (83.0-100.0); Mean Platelet Volume 11.3 fL (9.4-12.4); Monocytes # 0.5 K/mcL (0.0-1.3); Monocytes % 5.7 %; Neutrophils # 6.1 K/mcL (1.6-8.9); Platelet Count 115 K/mcL (140-400); Red Blood Count 4.43 M/mcL (3.82-4.97); Red Cell Distribution Width 12.8 % (11.5-14.5); Segmented Neutrophils % 70.9 %
[2018-04-24 05:47] LABS: Platelet Clumps Few (Not Present); Platelet Estimate Normal (Normal)
[2018-04-24 05:57] LABS: BUN/Creatinine Ratio 17 (6-26); Blood Urea Nitrogen 10 mg/dL (8-23); Calcium 8.7 mg/dL (8.6-10.3); Carbon Dioxide 25 mEq/L (23-29); Chloride 107 mEq/L (98-107); Glucose 99 mg/dL (70-105); Osmolality,Calculated 291 (280-300); Potassium 3.6 mEq/L (3.5-5.1); Sodium 141 mEq/L (136-145); eGFR For Non-African Americans > 60 (> 60)
[2018-04-24 06:33] VITALS: BP 162/70
[2018-04-24] MEDS: Carisoprodol 350 MG TABLET PO SCH (09:19)
[2018-04-24] MEDS: Lactobacillus 1 EACH CAP.SPRINK PO SCH (09:20)
[2018-04-24] MEDS: predniSONE 10 MG TABLET PO SCH (09:20)
[2018-04-24] MEDS: ALPRAZolam 0.5 MG TABLET PO SCH (09:20)
[2018-04-24] MEDS: Aspirin Enteric Coated 81 MG Tablet PO SCH (09:20)
[2018-04-24] MEDS: *HR* Metformin 500 MG TABLET PO SCH (09:20)
[2018-04-24] MEDS: *HR* Morphine Sulfate SR (12 HR) 30 MG TABLET.ER PO SCH (09:20)
[2018-04-24] MEDS: Azithromycin 500 MG in D5% in Water 250 ML IVPB SCH (09:21)
[2018-04-24] MEDS: cefTRIAXone 1,000 MG in Water for inj. (sterile) 20 ML 10 ML IVP SCH (09:22)
--- NOTE | 2018-04-24 09:46 | Discharge Summary ---
Orders not resulted at time of discharge: Pending orders 04/22/18 11:00 Culture,Blood [BC] Stat Date of Encounter: 04/24/18 Time of Encounter: 09:37 - Discharge Diagnosis (1) Pneumonia Priority: Primary Status: Acute Qualifiers: Pneumonia type: due to unspecified organism Laterality: right Lung location: lower lobe of lung Qualified Code(s): J18.1 - Lobar pneumonia, unspecified organism (2) Hypertension Priority: Secondary Status: Chronic Qualifiers: Hypertension type: essential hypertension Qualified Code(s): I10 - Essential (primary) hypertension (3) DM type 2 (diabetes mellitus, type 2) Priority: Secondary Status: Chronic Qualifiers: Diabetes mellitus prison insulin use: without prison use Diabetes mellitus complication status: without complication Qualified Code(s): E11.9 - Type 2 diabetes mellitus without complications (4) Hypothyroidism Priority: Secondary Status: Chronic Qualifiers: Hypothyroidism type: unspecified Qualified Code(s): E03.9 - Hypothyroidism, unspecified Hospital course: Ms. Diana is a 82 year old female who came to emergency room stating she had dyspnea with cough productive of [place] sputum with occasional blood for the previous 2 days. She spiked fever at home of 102.4 so came to emergency room. She was evaluated and found to have multifocal pneumonia from early in the right lung. She was admitted to [facility] floor for ongoing care needs. Initial orders were written by the emergency room physician. I saw her on [facility] and performed a history and physical. She was started on Rocephin and Zithromax with lactobacillus. Chest CT was done to further evaluate. The CT showed multifocal ground glass airspace disease in the right lung suggesting multifocal pneumonia. It was recommended follow-up evaluation be done to ensure resolution. WBC normalized to 8.6 and left shift resolved by April 24. She remained afebrile after arrival to [facility] floor. She felt improved and stable for discharge home when I saw her April 24. She will follow with her PCP within 1 week. She will continue with antibiotic and probiotic for 5 additional days at discharge. Room air oximetry will be checked on 6 minute walk prior to discharge. - Time Spent with Patient Total time spent providing and/or coordinating discharge services: - Discharge Medications Prescriptions: Cefuroxime PO [Ceftin] 500 mg PO Q12HR #10 tablet Azithromycin [Zithromax] 250 mg PO DAILY #5 tablet Lactobacillus [Culturelle] 1 each PO BID #10 cap.[email or web address] Home Medications: ALPRAZolam [Xanax 0.5 MG Tablet] 0.5 mg PO TID 08/12/15 [History] Alendronate Sodium [Fosamax] 70 mg PO QWEEK 08/12/15 [History] Aspirin [Adult Low Dose Aspirin EC] 81 mg PO DAILY 08/12/15 [History] Carisoprodol [Soma] 350 mg PO BID 08/12/15 [History] Ergocalciferol (VITAMIN D2) [Drisdol (50,000 Unit)] 50,000 unit PO QWEEK 08/12/15 [History] Levothyroxine [Synthroid] 75 mcg PO DAILY 08/12/15 [History] Metformin HCl [Riomet] 500 mg PO BID 08/12/15 [History] Metoprolol [Lopressor] 50 mg DAILY 08/12/15 [History] Morphine Sulfate ER (24 HR) [Morphine Sulfate ER Caps] 90 mg PO BID 08/12/15 [History] PredniSONE [Latoya] 10 mg PO DAILY 08/12/15 [History] Simvastatin [Zocor] 40 mg PO HS 08/12/15 [History] TraZODone 100 mg PO DAILY 08/12/15 [History] Albuterol Sulfate [Albuterol Inhaler] 2 puff IH Q4H PRN 04/18/17 [History] Budesonide/Formoterol 160/4.5 [Symbicort 160/4.5] 1 puff IH BIDR 04/18/17 [History] Ferrous Gluconate 324 mg PO DAILY 04/18/17 [History] Folic Acid 1 mg PO DAILY 04/18/17 [History] Ipratropium/Albuterol Neb [Duoneb] 3 ml IH Q6HR 04/18/17 [History] Losartan Potassium [Cozaar] 100 mg PO DAILY 04/18/17 [History] Morphine Sulfate [Morphine Sulfate ER] 100 mg PO BID 04/18/17 [History] Omeprazole 40 mg PO DAILY 04/18/17 [History] Azithromycin [Zithromax] 250 mg PO DAILY #5 tablet 04/24/18 [Rx] Cefuroxime PO [Ceftin] 500 mg PO Q12HR #10 tablet 04/24/18 [Rx] Lactobacillus [Culturelle] 1 each PO BID #10 cap.[email or web address] 04/24/18 [Rx] Allergies/Adverse Reactions: Allergy/AdvReac Type Severity Reaction Status Date / Time amitriptyline [From Elavil] AdvReac Hallucinati Verified 07/21/17 13:08 ng fluoxetine [From Prozac] AdvReac Difficulty Verified 07/21/17 13:08 Breathing Date of admission: 04/22/18 12:20 Primary care physician: Reinaldo Andres MD - Constitutional Vitals: Temp Pulse Resp BP Pulse Ox 98.7 F 75 16 162/70 94 04/24/18 06:31 04/24/18 06:31 04/24/18 06:31 04/24/18 06:31 04/24/18 06:31 - Patient Status Disposition: Home, Self-Care Condition: Fair - Discharge Instructions Follow Up With: Reinaldo Andres MD [Primary Care Provider] - 1 week - Diet and Activity Activity: resume usual activities as tolerated Diet: advance to your usual diet
[2018-04-24] MEDS: Budesonide/Formoterol 160/4.5 1 PUFF INH IH SCH (10:20)
== END 2018-04-24 11:30 | disposition home or self-care (01) ==
LOC: INPPIK 09:42 → EMEROOPIK 09:42 → INPPIK 13:15
PROVIDERS: ADMIT Internal Medicine; ATTEND Internal Medicine

== ENCOUNTER 2018-08-19 20:17 | Observation (INO) ==
[2018-08-19] MEDS ORDERED: Ketorolac 30 MG/ML VIAL IVP ONE (20:26)
[2018-08-19] MEDS ORDERED: Ipratropium/Albuterol Neb 3 ML IH ONE (20:26)
[2018-08-19] MEDS ORDERED: *HR* FentaNYL (PF) 100 MCG/2 ML VIAL IVP ONE (20:26)
[2018-08-19 20:51] LABS: Basophils % 0.5 %; Eosinophils # 0.4 K/mcL (0.0-0.6); Eosinophils % 6.8 %; Hemoglobin 13.3 g/dL (11.5-15.4); Immature Granulocytes % 0.8 % (0-4); Lymphocytes # 1.7 K/mcL (0.6-4.6); Lymphocytes % 26.9 %; Mean Corpuscular HGB Conc 31.7 g/dL (31.6-35.5); Mean Corpuscular Hemoglobin 30.6 pg (28.0-33.3); Mean Corpuscular Volume 96.6 fL (83.0-100.0); Mean Platelet Volume 9.8 fL (9.4-12.4); Monocytes # 0.5 K/mcL (0.0-1.3); Neutrophils # 3.8 K/mcL (1.6-8.9); Platelet Count 126 K/mcL (140-400); Red Blood Count 4.35 M/mcL (3.82-4.97)
[2018-08-19 21:10] LABS: BUN/Creatinine Ratio 16 (6-26); Blood Urea Nitrogen 13 mg/dL (8-23); Calcium 9.2 mg/dL (8.6-10.3); Carbon Dioxide 30 mEq/L (23-29); Chloride 104 mEq/L (98-107); Glucose 144 mg/dL (70-105); Osmolality,Calculated 293 (280-300); Potassium 3.6 mEq/L (3.5-5.1); Sodium 140 mEq/L (136-145); eGFR For Non-African Americans > 60 (> 60)
[2018-08-19 21:11] LABS: Troponin I < 0.03 ng/mL (< 0.04)
[2018-08-19] MEDS ORDERED: methylPREDNISolone 125 MG/2 ML VIAL IVP ONE (21:58)
--- NOTE | 2018-08-19 22:01 | Emergency Department Note ---
Disposition Clinical Impression: Acute exacerbation of chronic obstructive airways disease Disposition: Admitted As Inpatient Condition: Fair Referrals: Reinaldo Andres MD [Primary Care Provider] - Forms: ED Satisfaction Letter Time of Disposition: 22:08 SOB HPI - General Chief Complaint: ED Shortness of Breath/Dyspnea Stated Complaint: Dyspnea and upper back pain onset 1 week Time Seen by Provider: 08/19/18 20:23 Source: patient, family, EMS Mode of arrival: EMS Limitations: no limitations Nursing Notes Reviewed: Yes Vital Signs Reviewed: Yes - History of Present Illness Pt Subjective Complaint: shortness of breath, cough, pain with inspiration Onset (ago): day(s) (The cough and shortness of breath and wheezing and been going on for about 5 or 6 days. The pain in the back has been going on for 2 days and much worse today.) Severity: severe Consistency/Duration: constant Improves with: bronchodilators (The breathing improved with her use of home aerosol machine but nothing seems to be alleviating this discomfort.) Worsens with: exertion Known history of: COPD Associated symptoms: Reports: cough, wheezing, sputum production. Denies: fever Treatment prior to arrival: bronchodilator (Use her home aerosol today) Cough present: Yes Cough Description: Productive Cough Frequency: Persistent Sputum production: Yes Sputum Color: White - Related Data Home Medications Medication Instructions Recorded Confirmed ALPRAZolam [Xanax 0.5 MG Tablet] 0.5 mg PO TID 08/12/15 04/22/18 Alendronate Sodium [Fosamax] 70 mg PO QWEEK 08/12/15 04/22/18 Aspirin [Adult Low Dose Aspirin EC] 81 mg PO DAILY 08/12/15 04/22/18 Carisoprodol [Soma] 350 mg PO BID 08/12/15 04/22/18 Ergocalciferol (VITAMIN D2) 50,000 unit PO QWEEK 08/12/15 04/22/18 [Drisdol (50,000 Unit)] Levothyroxine [Synthroid] 75 mcg PO DAILY 08/12/15 04/22/18 Metformin HCl [Riomet] 500 mg PO BID 08/12/15 04/22/18 Metoprolol [Lopressor] 50 mg DAILY 08/12/15 04/22/18 Morphine Sulfate ER (24 HR) 90 mg PO BID 08/12/15 04/22/18 [Morphine Sulfate ER Caps] PredniSONE [Latoya] 10 mg PO DAILY 08/12/15 04/22/18 Simvastatin [Zocor] 40 mg PO HS 08/12/15 04/22/18 TraZODone 100 mg PO DAILY 08/12/15 04/22/18 Albuterol Sulfate [Albuterol 2 puff IH Q4H PRN 04/18/17 04/22/18 Inhaler] Budesonide/Formoterol 160/4.5 1 puff IH BIDR 04/18/17 04/22/18 [Symbicort 160/4.5] Ferrous Gluconate 324 mg PO DAILY 04/18/17 04/22/18 Folic Acid 1 mg PO DAILY 04/18/17 04/22/18 Ipratropium/Albuterol Neb [Duoneb] 3 ml IH Q6HR 04/18/17 04/22/18 Losartan Potassium [Cozaar] 100 mg PO DAILY 04/18/17 04/22/18 Morphine Sulfate [Morphine Sulfate 100 mg PO BID 04/18/17 04/22/18 ER] Omeprazole 40 mg PO DAILY 04/18/17 04/22/18 Previous Rx's Medication Instructions Recorded Azithromycin [Zithromax] 250 mg PO DAILY #5 tablet 04/24/18 Cefuroxime PO [Ceftin] 500 mg PO Q12HR #10 tablet 04/24/18 Lactobacillus [Culturelle] 1 each PO BID #10 cap.sprink 04/24/18 Allergies Allergy/AdvReac Type Severity Reaction Status Date / Time amitriptyline [From Elavil] AdvReac Hallucinati Verified 07/21/17 13:08 ng fluoxetine [From Prozac] AdvReac Difficulty Verified 07/21/17 13:08 Breathing All systems ED: reviewed and negative except as stated. Constitutional: Denies: fever, chills ENT ED: Denies: ear pain, throat pain, congestion Cardiovascular: Denies: chest pain, palpitations Respiratory: Reports: cough, dyspnea, wheezes, sputum production Gastrointestinal: Denies: abdominal pain, nausea, vomiting Musculoskeletal: Reports: back pain (Upper back pain that is sharp and hurts to breathe and hurts to move.) Integumentary: Denies: rash Past Medical History - Past Medical History Attestation: Yes The following information was validated with the patient. Source: patient, old records reviewed, obtained from family, nursing notes reviewed Medical history: Reports: arthritis, asthma, diabetes, fibromyalgia, GERD, hyperlipidemia, hypertension, thyroid disease Surgical history: Reports: , KATHY/BSO Psychiatric history: Reports: anxiety, depression - Social History Smoking Status: Never smoker Smokeless Tobacco Status: No Alcohol use: Reports: none Drug use: Reports: none Physical Exam - General Limitations: no limitations General appearance: alert, other (Patient is coughing and sounds wheezy and seems to be having pain with breathing) - Head Head exam: atraumatic, normocephalic, normal inspection - Eye Eye exam: Present: normal appearance, PERRL, EOMI. Absent: scleral icterus, conjunctival injection - ENT ENT exam: normal exam, normal oropharynx, mucous membranes moist, TM's normal bilaterally, normal external ear exam - Neck Neck exam: Present: normal inspection, full ROM, trachea midline. Absent: meningismus - Chest Chest inspection: Present: normal inspection, symmetric chest wall rise. Absent: tenderness - Respiratory Respiratory exam: Present: wheezes, other (Visible pain with breathing) - Cardiovascular Cardiovascular exam: Present: normal rhythm, tachycardia, normal heart sounds - Abdominal Exam Abdominal exam: Present: soft, Non-Tender, normal bowel sounds - Extremities Exam Extremities exam: Present: normal inspection. Absent: pedal edema - Back Exam Back exam: Present: tenderness (Tenderness to paraspinal musculature in the upper back) - Neurological Exam Neurological exam: Present: alert, oriented X3 - Psychiatric Psychiatric exam: Present: normal affect, normal mood - Skin Skin exam: Present: warm, dry. Absent: rash Course Course Narrative: Patient presents with complaint of shortness of breath and pain that smoke to her back. The pain is sharp and stabbing and hurts to breathe and hurts to move. It hurts to cough. I think is purely muscle skeletal so I will give her pain medications for that. With regards to shortness of breath and the cough and the cough is productive of white mucus. I did she has a bronchitis, possibly pneumonia. I ordered breathing treatments and chest x-ray. I done a shortness of breath workup on the patient. Disposition will be based on diagnostic results and reevaluation. - Reevaluation(s) Reevaluation #1: Patient feels better with treatments. She is little bit tachycardic still at rest but pulse ox looks good and she is speaking in full sentences. Her chest x-ray was negative. Her labs look fine. I think is a bronchitis with bronch ospasm. Muscle skeletal pain was resolved with pain medications. I am a get her up and ambulate her and see how she does walking. If she decompensates she will obviously need to be admitted to the hospital. Time: 22:00 Reevaluation #2: Patient ambulated. She says she did not have much trouble doing it. However back of the bedside her sat was down to 91% and her heart rate was 120 beats a minute. On auscultation she still got tight wheezing everywhere. I entered into a shared decision-making discussion with the patient and family and we felt that the best plan was to admit the patient to the hospital for management and better stabilization. I will call the hospitalist. Time: 22:08 - Consultations Consultation #1: Dr. Becerril, hospitalist - I discussed case with the hospitalist. He accepted patient for admission. Time: 22:09 Vital Signs O2 Sat by Pulse Oximetry 95 08/19/18 20:20 Temperature 97.8 F 08/19/18 20:23 Pulse Rate 102 08/19/18 21:20 Respiratory Rate 18 08/19/18 21:20 Blood Pressure 139/80 08/19/18 21:20 O2 Sat by Pulse Oximetry 94 08/19/18 21:20 Oxygen Delivery Oxygen Delivery Room Air Shortness of Breath/Dyspnea - Medical Records Medical records reviewed: Yes I reviewed the patient's medical records. - Lab Data Lab results reviewed: Yes I reviewed the patient's lab results. Result diagrams: 08/19/18 20:43 08/19/18 20:43 Lab Results 08/19/18 08/19/18 08/19/18 Range/Units 20:43 20:43 20:43 WBC 6.5 (4.3-11.1) K/mcL RBC 4.35 (3.82-4.97) M/mcL Hgb 13.3 (11.5-15.4) g/dL Hct 42.0 (35.3-44.9) % MCV 96.6 (83.0-100.0) fL MCH 30.6 (28.0-33.3) pg MCHC 31.7 (31.6-35.5) g/dL RDW 13.0 (11.5-14.5) % Plt Count 126 L (140-400) K/mcL MPV 9.8 (9.4-12.4) fL Immature Gran % 0.8 (0-4) % Seg Neutrophils % 58.0 % Lymphocytes % 26.9 % Monocytes % 7.0 % Eosinophils % 6.8 % Basophils % 0.5 % Neutrophils # 3.8 (1.6-8.9) K/mcL Lymphocytes # 1.7 (0.6-4.6) K/mcL Monocytes # 0.5 (0.0-1.3) K/mcL Eosinophils # 0.4 (0.0-0.6) K/mcL Basophils # 0.0 (0.0-0.2) K/mcL Sodium 140 (136-145) mEq/L Potassium 3.6 (3.5-5.1) mEq/L Chloride 104 (98-107) mEq/L Carbon Dioxide 30 H (23-29) mEq/L BUN 13 (8-23) mg/dL Creatinine 0.80 (0.60-1.20) mg/dL Est GFR ( Amer) > 60 (> 60) Est GFR (Non-Af Amer) > 60 (> 60) BUN/Creatinine Ratio 16 (6-26) Glucose 144 H (70-105) mg/dL Calculated Osmolality 293 (280-300) Lactic Acid 2.0 (0.5-2.2) mmol/L Calcium 9.2 (8.6-10.3) mg/dL Troponin I < 0.03 (< 0.04) ng/mL B-Natriuretic Peptide (Less than 100) pg/mL 08/19/18 Range/Units 20:43 WBC (4.3-11.1) K/mcL RBC (3.82-4.97) M/mcL Hgb (11.5-15.4) g/dL Hct (35.3-44.9) % MCV (83.0-100.0) fL MCH (28.0-33.3) pg MCHC (31.6-35.5) g/dL RDW (11.5-14.5) % Plt Count (140-400) K/mcL MPV (9.4-12.4) fL Immature Gran % (0-4) % Seg Neutrophils % % Lymphocytes % % Monocytes % % Eosinophils % % Basophils % % Neutrophils # (1.6-8.9) K/mcL Lymphocytes # (0.6-4.6) K/mcL Monocytes # (0.0-1.3) K/mcL Eosinophils # (0.0-0.6) K/mcL Basophils # (0.0-0.2) K/mcL Sodium (136-145) mEq/L Potassium (3.5-5.1) mEq/L Chloride (98-107) mEq/L Carbon Dioxide (23-29) mEq/L BUN (8-23) mg/dL Creatinine (0.60-1.20) mg/dL Est GFR ( Amer) (> 60) Est GFR (Non-Af Amer) (> 60) BUN/Creatinine Ratio (6-26) Glucose (70-105) mg/dL Calculated Osmolality (280-300) Lactic Acid (0.5-2.2) mmol/L Calcium (8.6-10.3) mg/dL Troponin I (< 0.04) ng/mL B-Natriuretic Peptide 66 (Less than 100) pg/mL - Radiology Data Radiology results reviewed: Yes I reviewed the patient's radiology results. - EKG Data EKG attestation: Yes I reviewed and interpreted this EKG. EKG results narrative: Twelve-lead EKG performed at 8:27 PM. Ordered, reviewed and interpreted by ED physician shows sinus tachycardia rate of 107. Left axis deviation. Good R wave progression across precordium. No obvious acute ischemic changes.
[2018-08-19] MEDS ORDERED: Azithromycin 500 MG in D5% in Water 250 ML IVPB ONE ×2 (22:10→22:37)
[2018-08-19] MEDS ORDERED: cefTRIAXone 1,000 MG in 0.9 % Sodium Chloride Mini Bag 100 ML IVPB ONE (22:37)
[2018-08-19] MEDS ORDERED: Naloxone 0.4 MG/ML INJ IVP PRN (22:37)
[2018-08-19] MEDS: 0.9 % Sodium Chloride 1,000 ML IVC SCH (23:10)
[2018-08-19] MEDS ORDERED: NON-FORMULARY MEDICATION 1 EACH EACH (Alendronate Sodium [Fosamax] 70 MG) PO SCH (23:45)
[2018-08-19] MEDS ORDERED: ALPRAZolam 0.5 MG TABLET PO PRN (23:57)
[2018-08-20] MEDS ORDERED: Acetaminophen 325 MG TABLET PO PRN (00:24)
[2018-08-20] MEDS ORDERED: Ipratropium/Albuterol Neb 3 ML IH SCH (04:00)
[2018-08-20] MEDS: Ipratropium/Albuterol Neb 3 ML IH SCH ×3 (04:49→15:52)
[2018-08-20] MEDS: MethylPREDNISolone 40 MG/ML VIAL IVP SCH ×2 (06:10→13:34)
[2018-08-20] MEDS: *HR* HYDROcodone/Acet 5/325 mg TABLET PO PRN ×2 (06:13→13:34)
[2018-08-20] MEDS ORDERED: *HR* Metformin 500 MG TABLET PO SCH (08:00)
[2018-08-20] MEDS ORDERED: Lactobacillus 1 EACH CAP.SPRINK PO SCH (09:00)
[2018-08-20] MEDS ORDERED: Folic Acid 1 MG TABLET PO SCH (09:00)
[2018-08-20] MEDS ORDERED: Metoprolol XL (24 HR) Succ 50 MG TAB.ER.24H PO SCH (09:00)
[2018-08-20] MEDS ORDERED: cefTRIAXone 1,000 MG in Water for inj. (sterile) 20 ML 10 ML IVP SCH (09:00)
[2018-08-20] MEDS ORDERED: Aspirin Enteric Coated 81 MG Tablet PO SCH (09:00)
[2018-08-20] MEDS ORDERED: traZODone 50 MG TABLET PO SCH ×2 (09:00→21:00)
[2018-08-20] MEDS ORDERED: Carisoprodol 350 MG TABLET PO SCH (09:00)
[2018-08-20] MEDS ORDERED: Budesonide/Formoterol 160/4.5 1 PUFF INH IH SCH (10:00)
[2018-08-20 10:49] VITALS: BP 134/75
[2018-08-20] MEDS: 0.9 % Sodium Chloride 1,000 ML IVC SCH (10:58)
--- NOTE | 2018-08-20 13:08 | Electrocardiograph Report ---
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
--- NOTE | 2018-08-20 15:06 | Discharge Summary ---
Orders not resulted at time of discharge: Pending orders 08/19/18 20:43 Culture,Blood [BC] Stat Date of Encounter: 08/20/18 Time of Encounter: 14:30 - Discharge Diagnosis (1) Acute bronchitis Priority: Primary Status: Acute Qualifiers: Bronchitis organism: unspecified organism Qualified Code(s): J20.9 - Acute bronchitis, unspecified Hospital course: Ms. Diana is a 83 year old female who came to emergency room complaining of cough and dyspnea onset approximately 5-6 days previously. She reports the cough productive of white sputum with no yellow-green or blood seen. She reports some interscapular pain that worsens with coughing. She has had minimal fevers and denies chills vomiting or diarrhea. She was evaluated in emergency room was admitted to [facility] for ongoing care needs. Initial orders were written by the emergency room physician. I saw her on August 20 and performed a history physical and discharge. When I saw her she stated her breathing had significantly improved. She still had some interscapular pain but had medication available at home. She felt stable for discharge home which I felt was reasonable. She will follow with her PCP within 1 week. No antibiotics will be given. She will have a 6 minute walk prior to discharge. - Time Spent with Patient Total time spent providing and/or coordinating discharge services: - Discharge Medications Prescriptions: Continued Ergocalciferol (VITAMIN D2) [Drisdol (50,000 Unit)] 50,000 unit PO QWEEK TraZODone 100 mg PO DAILY ALPRAZolam [Xanax 0.5 MG Tablet] 0.5 mg PO TID PRN PRN Reason: Anxiety Aspirin [Adult Low Dose Aspirin EC] 81 mg PO DAILY Simvastatin [Zocor] 40 mg PO HS Metformin HCl [Riomet] 500 mg PO BID Alendronate Sodium [Fosamax] 70 mg PO QWEEK Carisoprodol [Soma] 350 mg PO BID PredniSONE [Latoya] 10 mg PO DAILY Morphine Sulfate ER (24 HR) [Morphine Sulfate ER Caps] 90 mg PO BID Levothyroxine [Synthroid] 75 mcg PO DAILY Folic Acid 1 mg PO DAILY Budesonide/Formoterol 160/4.5 [Symbicort 160/4.5] 1 puff IH BIDR Albuterol Sulfate [Albuterol Inhaler] 2 puff IH Q4H PRN PRN Reason: wheezing Ipratropium/Albuterol Neb [Duoneb] 3 ml IH Q6HR Ferrous Gluconate 324 mg PO DAILY Omeprazole 40 mg PO DAILY Morphine Sulfate [Morphine Sulfate ER] 100 mg PO BID Lactobacillus [Culturelle] 1 each PO BID #10 cap.sprink Metoprolol XL (24 HR) Succ [Toprol Xl] 50 mg PO DAILY Home Medications: ALPRAZolam [Xanax 0.5 MG Tablet] 0.5 mg PO TID PRN 08/12/15 [History] Alendronate Sodium [Fosamax] 70 mg PO QWEEK 08/12/15 [History] Aspirin [Adult Low Dose Aspirin EC] 81 mg PO DAILY 08/12/15 [History] Carisoprodol [Soma] 350 mg PO BID 08/12/15 [History] Ergocalciferol (VITAMIN D2) [Drisdol (50,000 Unit)] 50,000 unit PO QWEEK 08/12/15 [History] Levothyroxine [Synthroid] 75 mcg PO DAILY 08/12/15 [History] Metformin HCl [Riomet] 500 mg PO BID 08/12/15 [History] Morphine Sulfate ER (24 HR) [Morphine Sulfate ER Caps] 90 mg PO BID 08/12/15 [History] PredniSONE [Latoya] 10 mg PO DAILY 08/12/15 [History] Simvastatin [Zocor] 40 mg PO HS 08/12/15 [History] TraZODone 100 mg PO DAILY 08/12/15 [History] Albuterol Sulfate [Albuterol Inhaler] 2 puff IH Q4H PRN 04/18/17 [History] Budesonide/Formoterol 160/4.5 [Symbicort 160/4.5] 1 puff IH BIDR 04/18/17 [History] Ferrous Gluconate 324 mg PO DAILY 04/18/17 [History] Folic Acid 1 mg PO DAILY 04/18/17 [History] Ipratropium/Albuterol Neb [Duoneb] 3 ml IH Q6HR 04/18/17 [History] Morphine Sulfate [Morphine Sulfate ER] 100 mg PO BID 04/18/17 [History] Omeprazole 40 mg PO DAILY 04/18/17 [History] Lactobacillus [Culturelle] 1 each PO BID #10 cap.sprink 04/24/18 [Rx] Metoprolol XL (24 HR) Succ [Toprol Xl] 50 mg PO DAILY 08/20/18 [History] Allergies/Adverse Reactions: Allergy/AdvReac Type Severity Reaction Status Date / Time amitriptyline [From Elavil] AdvReac Hallucinati Verified 08/19/18 22:31 ng fluoxetine [From Prozac] AdvReac Difficulty Verified 08/19/18 22:31 Breathing Date of admission: 08/19/18 22:31 Primary care physician: Reinaldo Andres MD - Constitutional Vitals: Temp Pulse Resp BP Pulse Ox 98.2 F 76 16 134/75 95 08/20/18 10:47 08/20/18 10:47 08/20/18 10:47 08/20/18 10:47 08/20/18 10:47 - Patient Status Disposition: Home, Self-Care Condition: Fair - Discharge Instructions Follow Up With: Reinaldo Andres MD [Primary Care Provider] - 1 week - Diet and Activity Activity: resume usual activities as tolerated Diet: advance to your usual diet
[2018-08-20] MEDS ORDERED: Azithromycin 500 MG in D5% in Water 250 ML IVPB SCH (23:00)
== END 2018-08-20 16:13 | disposition home or self-care (01) ==
LOC: INPPIK 20:17 → EMEROOPIK 20:17 → INPPIK 22:50
PROVIDERS: ADMIT Internal Medicine; ATTEND Internal Medicine

== ENCOUNTER 2019-10-28 19:27 | Inpatient (IN) ==
[2019-10-28] MEDS ORDERED: Isovue-370 500 ML BOTTLE IVP ONE (19:42)
[2019-10-28 20:17] LABS: Basophils % 0.6 %; Eosinophils # 0.2 K/mcL (0.0-0.6); Eosinophils % 3.2 %; Hematocrit 42.5 % (35.3-44.9); Hemoglobin 14.8 g/dL (11.5-15.4); Immature Granulocytes % 0.4 % (0-4); Lymphocytes # 1.7 K/mcL (0.6-4.6); Lymphocytes % 33.1 %; Mean Corpuscular HGB Conc 34.8 g/dL (31.6-35.5); Mean Corpuscular Hemoglobin 30.6 pg (28.0-33.3); Mean Platelet Volume 9.2 fL (9.4-12.4); Monocytes # 0.4 K/mcL (0.0-1.3); Monocytes % 8.3 %; Neutrophils # 2.8 K/mcL (1.6-8.9); Platelet Count 192 K/mcL (140-400); Red Blood Count 4.83 M/mcL (3.82-4.97); Red Cell Distribution Width 11.9 % (11.5-14.5); Segmented Neutrophils % 54.4 %; White Blood Count 5.1 K/mcL (4.3-11.1)
[2019-10-28 20:28] LABS: INR 1.2; Prothrombin Time 13.1 Seconds (9.4-12.1)
[2019-10-28 20:35] LABS: Bilirubin,Urine Negative (Negative); Blood,Urine Trace-intact (Negative); Clarity,Urine Clear (Clear); Color,Urine Yellow (Yellow); Glucose,Urine (UA) Normal (Normal); Ketones,Urine Negative (Negative); Leukocyte Esterase,Urine Small (Negative); Nitrite,Urine Negative (Negative); PH,Urine 6.5 pH Units (5.0-8.0); Protein,Urine Negative (Neg-Trace); Specific Gravity,Urine 1.015 (1.010-1.025); Urobilinogen,Urine Normal (Normal)
[2019-10-28 20:35] LABS: Alanine Aminotransferase 11 Units/L (7-52); Albumin 4.3 g/dL (3.5-5.7); Albumin/Globulin Ratio 1.3 (1.1-2.2); Alkaline Phosphatase 48 Units/L (34-104); Aspartate Amino Transferase 16 Units/L (13-39); BUN/Creatinine Ratio 21 (6-26); Bilirubin,Total 0.3 mg/dL (0.3-1.0); Blood Urea Nitrogen 16 mg/dL (8-23); Carbon Dioxide 27 mEq/L (23-29); Chloride 96 mEq/L (98-107); Globulin 3.2 g/dL (2.4-3.5); Glucose 143 mg/dL (70-105); Osmolality,Calculated 284 (280-300); Potassium 3.6 mEq/L (3.5-5.1); Sodium 135 mEq/L (136-145); Total Protein 7.5 g/dL (6.4-8.9); eGFR For African Americans > 60 (> 60); eGFR For Non-African Americans > 60 (> 60)
[2019-10-28 20:36] LABS: Troponin I < 0.03 ng/mL (< 0.04)
[2019-10-28 20:49] LABS: Thyroid Stimulating Hormone 3.226 mcIU/mL (0.340-5.600)
[2019-10-28] MEDS ORDERED: Naloxone 0.4 MG/ML INJ IVP PRN (22:38)
[2019-10-28] MEDS ORDERED: Carisoprodol 350 MG TABLET PO PRN (22:38)
[2019-10-28] MEDS ORDERED: Ipratropium/Albuterol Neb 3 ML IH PRN (22:38)
[2019-10-28] MEDS ORDERED: ALPRAZolam 0.5 MG TABLET PO PRN (22:38)
[2019-10-28] MEDS ORDERED: Morphine Sulfate ER (12 HR) 30 MG TABLET.ER PO PRN (22:38)
[2019-10-28] MEDS ORDERED: Ondansetron ODT 4 MG TAB.RAPDIS SL PRN (22:38)
[2019-10-28] MEDS ORDERED: Morphine Sulfate Immed Rel 30 MG TABLET PO PRN (22:38)
[2019-10-28] MEDS ORDERED: traZODone 50 MG TABLET PO PRN (22:38)
[2019-10-29 07:48] LABS: Basophils % 0.4 %; Eosinophils # 0.2 K/mcL (0.0-0.6); Eosinophils % 3.8 %; Hematocrit 35.9 % (35.3-44.9); Hemoglobin 12.6 g/dL (11.5-15.4); Immature Granulocytes % 0.2 % (0-4); Lymphocytes # 1.6 K/mcL (0.6-4.6); Lymphocytes % 33.8 %; Mean Corpuscular HGB Conc 35.1 g/dL (31.6-35.5); Mean Corpuscular Volume 88.4 fL (83.0-100.0); Mean Platelet Volume 9.8 fL (9.4-12.4); Monocytes # 0.5 K/mcL (0.0-1.3); Monocytes % 10.1 %; Neutrophils # 2.4 K/mcL (1.6-8.9); Platelet Count 190 K/mcL (140-400); Red Blood Count 4.06 M/mcL (3.82-4.97); Red Cell Distribution Width 11.7 % (11.5-14.5); Segmented Neutrophils % 51.7 %; White Blood Count 4.7 K/mcL (4.3-11.1)
[2019-10-29 08:00] LABS: BUN/Creatinine Ratio 20 (6-26); Blood Urea Nitrogen 12 mg/dL (8-23); Calcium 8.8 mg/dL (8.6-10.3); Carbon Dioxide 28 mEq/L (23-29); Chloride 102 mEq/L (98-107); Glucose 89 mg/dL (70-105); Osmolality,Calculated 287 (280-300); Potassium 3.5 mEq/L (3.5-5.1); Sodium 139 mEq/L (136-145); eGFR For African Americans > 60 (> 60); eGFR For Non-African Americans > 60 (> 60)
[2019-10-29] MEDS ORDERED: MORPHINE SULFATE 100 MG PO SCH (08:00)
[2019-10-29] MEDS: 0.9 % Sodium Chloride 1,000 ML IVC SCH ×2 (08:42)
[2019-10-29] MEDS: hydroCHLOROthiazide 25 MG TABLET PO SCH (08:43)
[2019-10-29] MEDS: amLODIPine 5 MG TABLET PO SCH (08:44)
[2019-10-29] MEDS: predniSONE 10 MG TABLET PO SCH (08:44)
[2019-10-29] MEDS: Metoprolol XL (24 HR) Succ 50 MG TAB.ER.24H PO SCH (08:44)
[2019-10-29] MEDS: Cholecalciferol (D-3) 1,000 UNIT (25MCG) TABLET PO SCH (08:46)
[2019-10-29] MEDS: Aspirin Enteric Coated 81 MG Tablet PO SCH (08:46)
[2019-10-29] MEDS: Morphine Sulfate ER (12 HR) 30 MG TABLET.ER PO SCH ×2 (08:53→21:07)
[2019-10-29] MEDS: *HR* Metformin 500 MG TABLET PO SCH ×2 (08:53→16:53)
[2019-10-29] MEDS: Budesonide Neb 0.5 MG/2 ML IH SCH ×2 (09:32→21:56)
[2019-10-29 12:01] LABS: Triiodothyronine (T3) Free 2.44 pg/mL (2.50-3.90)
[2019-10-29] MEDS ORDERED: Acetaminophen 325 MG TABLET PO PRN (15:30)
[2019-10-30 06:23] LABS: Hematocrit 36.4 % (35.3-44.9); Hemoglobin 12.6 g/dL (11.5-15.4); Mean Corpuscular HGB Conc 34.6 g/dL (31.6-35.5); Mean Corpuscular Volume 89.7 fL (83.0-100.0); Mean Platelet Volume 9.6 fL (9.4-12.4); Platelet Count 190 K/mcL (140-400); Red Blood Count 4.06 M/mcL (3.82-4.97); Red Cell Distribution Width 11.9 % (11.5-14.5); White Blood Count 5.7 K/mcL (4.3-11.1)
[2019-10-30 06:41] LABS: Alanine Aminotransferase 8 Units/L (7-52); Albumin 3.4 g/dL (3.5-5.7); Albumin/Globulin Ratio 1.5 (1.1-2.2); Alkaline Phosphatase 33 Units/L (34-104); Aspartate Amino Transferase 13 Units/L (13-39); BUN/Creatinine Ratio 26 (6-26); Bilirubin,Total 0.3 mg/dL (0.3-1.0); Blood Urea Nitrogen 16 mg/dL (8-23); Carbon Dioxide 29 mEq/L (23-29); Chloride 104 mEq/L (98-107); Globulin 2.2 g/dL (2.4-3.5); Glucose 89 mg/dL (70-105); Magnesium 1.4 mg/dL (1.6-2.6); Osmolality,Calculated 291 (280-300); Potassium 4.1 mEq/L (3.5-5.1); Sodium 140 mEq/L (136-145); Total Protein 5.6 g/dL (6.4-8.9); eGFR For African Americans > 60 (> 60); eGFR For Non-African Americans > 60 (> 60)
[2019-10-30] MEDS ORDERED: Magnesium Oxide 400 MG TABLET PO SCH (09:00)
[2019-10-30] MEDS: hydroCHLOROthiazide 25 MG TABLET PO SCH (09:15)
[2019-10-30] MEDS: Metoprolol XL (24 HR) Succ 50 MG TAB.ER.24H PO SCH (09:15)
[2019-10-30] MEDS: predniSONE 10 MG TABLET PO SCH (09:15)
[2019-10-30] MEDS: Morphine Sulfate ER (12 HR) 30 MG TABLET.ER PO SCH (09:15)
[2019-10-30] MEDS: amLODIPine 5 MG TABLET PO SCH (09:15)
[2019-10-30] MEDS: Aspirin Enteric Coated 81 MG Tablet PO SCH (09:16)
[2019-10-30] MEDS: Cholecalciferol (D-3) 1,000 UNIT (25MCG) TABLET PO SCH (09:16)
[2019-10-30] MEDS: *HR* Metformin 500 MG TABLET PO SCH (09:16)
[2019-10-30 10:41] VITALS: BP 129/85
[2019-10-30] MEDS: Budesonide Neb 0.5 MG/2 ML IH SCH (11:05)
[2019-10-31] MEDS ORDERED: Ergocalciferol (VIT D2) 50,000 UNIT (1.25MG) CAP PO SCH (09:00)
[2019-11-01] MEDS ORDERED: Alendronate Sodium [Fosamax] 70 MG PO SCH (06:30)
== END 2019-10-30 14:08 | disposition home or self-care (01) | DRG 690 ==
LOC: EMEROOPIK 19:27 → INPPIK 19:27
PROVIDERS: ADMIT Family Medicine; ATTEND Family Medicine